=== PATIENT | male | born 1975 | race Two or more races ===

== ENCOUNTER 2021-07-19 03:19 | Inpatient (IN) | payer SELFPAY ==
[~2021-07-19] VITALS: Ht 177.8 cm; Wt 83.7 kg
[2021-07-19] MEDS ORDERED: FAMOTIDINE 20 MG/2 ML VIAL IVP ONE (03:45)
[2021-07-19] MEDS ORDERED: IV NORMAL SALINE 1000ML BAG 1,000 ML IV ONE ×2 (03:45→06:15)
[2021-07-19] MEDS ORDERED: LIDO:MAALOX 1:1 20 ML SINGLE DOSE. PO ONE (03:45)
[2021-07-19] MEDS ORDERED: ONDANSETRON PF 4 MG/2 ML VIAL. IVP ONE (03:45)
[2021-07-19 04:00] LABS: BASO % 0 % (0-3); EOS % 0 % (0-3); HEMATOCRIT 42.4 % (39.0-53.0); HEMOGLOBIN 14.9 g/dL (13.0-17.5); LYMPH % 5 % (24-48); MEAN CORPUSCULAR HEMOGLOBIN 30 pg (25-35); MEAN CORPUSCULAR HGB CONC 35 g/dL (31-37); MEAN CORPUSCULAR VOLUME 86 fL (79-100); MONO # 1.6 x10^3/uL (0.0-1.1); MONO % 8 % (0-9); NEUT # 18.1 x10^3/uL (1.8-7.7); NEUT % 87 % (31-73); PLATELET COUNT 167 x10^3/uL (140-400); RED BLOOD COUNT 4.92 x10^6/uL (4.30-5.70); RED CELL DISTRIBUTION WIDTH 12.5 % (11.5-14.5); WHITE BLOOD COUNT 20.8 x10^3/uL (4.0-11.0)
[2021-07-19 04:09] LABS: CALCIUM 8.6 mg/dL (8.5-10.1); GFR 80.1; POTASSIUM 3.2 mmol/L (3.5-5.1)
--- NOTE | 2021-07-19 04:10 | PHYS DOC ---
Past Medical History Past Medical History: Constipation Past Surgical History: No Surgical History Smoking Status: Never Smoker Alcohol Use: Occasionally ("6pack on weekends") Drug Use: None General Adult EDM: Chief Complaint: ABDOMINAL PAIN HPI: HPI: 46-year-old male presents with report of epigastric abdominal pain is been ongoing for the past 3 days. Patient reports associated nausea and vomiting. Denies known sick contacts. Denies known exposure to COVID-19. Denies trauma. Denies fever or chills. Patient also reports has not had a bowel movement during this period of time. Patient reports he eats "spicy foods ". Patient trialed using Pepto-Bismol without significant improvement of symptoms. Reports he is not vaccinated for COVID-19. Denies known sick contacts or known exposure to COVID-19. Last PO at 2300. Review of Systems: Review of Systems: Constitutional: Denies fever or chills Eyes: Denies redness or eye pain HENT: Denies nasal congestion or sore throat Respiratory: Denies cough or shortness of breath Cardiovascular: Denies chest pain or palpitations GI: Reports abdominal pain, nausea, and vomiting : Denies dysuria or hematuria Musculoskeletal: Denies back pain or joint pain Integument: Denies rash or skin lesions Neurologic: Denies headache, focal weakness or sensory changes Complete systems were reviewed and found to be within normal limits, except as documented in this note. Heart Score: C/O Chest Pain: N/A Current Medications: Current Medications Medications (Trade) Dose Ordered Sig/Kalyani Start Time Stop Time Status Last Admin Dose Admin Famotidine (Pepcid Vial) 20 mg 1X ONCE 07/19/21 03:45 07/19/21 03:46 DC 07/19/21 03:57 20 MG Multi-Ingredient Mouthwash/Gargle (Gi Cocktail) 20 ml 1X ONCE 07/19/21 03:45 07/19/21 03:46 DC 07/19/21 03:57 20 ML Ondansetron HCl (Zofran) 4 mg 1X ONCE 07/19/21 03:45 07/19/21 03:46 DC 07/19/21 03:57 4 MG Sodium Chloride 1,000 ml @ 1,000 mls/hr 1X ONCE 07/19/21 03:45 07/19/21 04:44 07/19/21 03:57 1,000 MLS/HR Allergies: Allergies: Allergies Coded Allergies Type Severity Reaction Last Updated Verified No Known Drug Allergies 07/19/21 No Physical Exam: PE: Constitutional: Well developed, well nourished, no acute distress, non-toxic appearance HENT: Normocephalic, atraumatic Eyes: Conjunctiva normal, no discharge Neck: Normal range of motion, supple Lungs & Thorax: No respiratory distress, equal chest rise and fall Abdomen: Soft, diffuse abdominal tenderness, no distention/rebound tenderness Skin: Warm, dry, no erythema, no rash Back: No tenderness, no CVA tenderness Extremities: No tenderness, ROM intact, no edema Neurologic: Alert and oriented X 3, no focal deficits noted Psychologic: Affect normal, judgment normal Current Patient Data: Labs: Laboratory Tests Test 07/19/21 03:52 White Blood Count 20.8 x10^3/uL (4.0-11.0) H Red Blood Count 4.92 x10^6/uL (4.30-5.70) Hemoglobin 14.9 g/dL (13.0-17.5) Hematocrit 42.4 % (39.0-53.0) Mean Corpuscular Volume 86 fL (79-100) Mean Corpuscular Hemoglobin 30 pg (25-35) Mean Corpuscular Hemoglobin Concent 35 g/dL (31-37) Red Cell Distribution Width 12.5 % (11.5-14.5) Platelet Count 167 x10^3/uL (140-400) Neutrophils (%) (Auto) 87 % (31-73) H Lymphocytes (%) (Auto) 5 % (24-48) L Monocytes (%) (Auto) 8 % (0-9) Eosinophils (%) (Auto) 0 % (0-3) Basophils (%) (Auto) 0 % (0-3) Neutrophils # (Auto) 18.1 x10^3/uL (1.8-7.7) H Lymphocytes # (Auto) 1.0 x10^3/uL (1.0-4.8) Monocytes # (Auto) 1.6 x10^3/uL (0.0-1.1) H Eosinophils # (Auto) 0.0 x10^3/uL (0.0-0.7) Basophils # (Auto) 0.0 x10^3/uL (0.0-0.2) Platelet Estimate Pending Laboratory Tests 07/19/21 03:52 Vital Signs: Vital Signs Date Time Temp Pulse Resp B/P (MAP) Pulse Ox O2 Delivery O2 Flow Rate FiO2 07/19/21 03:38 98.4 104 16 138/89 97 Room Air 98.4 EKG: EKG: @0403 NSR at 96bpm, RBBB, NO ST elevation, QRS 98ms, QT/QTc 346/444ms Radiology/Procedures: Radiology/Procedures: PROCEDURE: CT ABD PELV W/ IV CONTRST ONLY CT abdomen and pelvis with contrast: Reason for examination: Abdominal pain with nausea and vomiting and constipation. Helical images were obtained through the abdomen pelvis with intravenous administration of 75 cc Omnipaque 300. Reconstruction was performed in sagittal and coronal planes. Exposure: One or more of the following individualized dose reduction techniques were utilized for this examination: 1. Automated exposure control 2. Adjustment of the mA and/or kV according to patient size 3. Use of iterative re construction technique. There is some linear atelectasis at the lung bases bilaterally. The heart size is normal with no pericardial effusion. No focal abnormalities are seen at the liver, spleen, gallbladder, adrenal glands or pancreas. The kidneys show no renal masses, renal calculi, hydronephro sis or obstructive uropathy. The colon shows a few diverticuli but no evidence of diverticulitis or colitis. No abnormality seen at the stomach or duodenum. The small intestinal tract however shows dilatation with no wall thickening which extends to the midline of the lower abdomen where there appears to be a dilated appendix with appendicolith and appear rupture of the distal appendix with inflammatory changes in the mesentery and localized fluid collection with air suggests an abscess measuring approximately 4 x 3.2 x 4 cm in AP, transverse and craniocaudal dimensions respectively. The kidneys show no renal masses, renal calculi, hydronephrosis or evidence of obstructive uropathy. No abnormality seen at the bladder, prostate gland or seminal vesicles. No free fluid or free air is identified. No acute bony abnormalities are seen. IMPRESSION: Dilated appendix with appendicolith and appear rupture of the distal appendix with localized inflammatory changes and localized fluid collection with air consistent with an abscess measuring 4 x 3.2 x 4 cm in greatest dimensions. This abuts small intestine at the midline in the lower abdomen with proximal dilatation of the small intestine. Electronically signed by: Lexus Saldaña MD (07/19/2021 5:33 AM) ARLEN Course & Med Decision Making: Course & Med Decision Making Pertinent Labs and Imaging studies reviewed. (See chart for details) Patient presents with epigastric abdominal pain with associated nausea and vomiting that is been ongoing for the past 3 days. Patient had reported eating spicy food and drinking alcohol with concern for possible gastritis. GI cocktail provided with some improvement of symptoms. Patient was rather distended on physical exam and therefore CT imaging was obtained. Labs also obtained and posted to chart. WBC significantly elevated. CT with signs of ruptured appendicitis with intra-abdominal abscess. Empiric antibiotic initiated. Discussed case with Dr. Braswell (general surgery) who is in agreement with consultation but requests consultation to interventional radiology for drainage of abscess. Discussed case with Dr. Nathan (IR) who is in agreement with consultation. Patient requiring admission for further evaluation and treatment. Discussed with Dr. Mcconnell (hospitalist) who is in agreement with admission. Discussed findings and plan with patient and family, who acknowledge understanding and agreement. Dominique Disclaimer: Dominique Disclaimer: This electronic medical record was generated, in whole or in part, using a voice recognition dictation system. Departure Departure Impression: Primary Impression: Ruptured appendicitis Additional Impression: Intra-abdominal abscess Disposition: ADMITTED INPATIENT Admitting Physician: SANDIE (Enedina) Condition: GUARDED Critical Care Time Critical care time was 30 minutes which includes time at bedside, spent in discussion of patient's care with specialists and/or family members, with interpretation of laboratory and/or radiological studies and is exclusive of procedures. MELINA BATISTA DO Jul 19, 2021 04:10
[2021-07-19 04:15] LABS: ALBUMIN 3.1 g/dL (3.4-5.0); ALBUMIN/GLOBULIN RATIO 0.6 (1.0-1.7); MAGNESIUM 2.5 mg/dL (1.8-2.4); TOTAL BILIRUBIN 1.2 mg/dL (0.2-1.0); TOTAL PROTEIN 8.4 g/dL (6.4-8.2)
[2021-07-19 04:23] LABS: CREATINE KINASE 60 U/L (39-308)
[2021-07-19 04:29] LABS: % LYMPHS 4 % (24-48); % MONOS 5 % (0-10); % SEGS 91 % (35-66); PLT ESTIMATE ADEQUATE (ADEQUATE)
[2021-07-19 04:30] LABS: TOXIC VACUOLATION SLIGHT
[2021-07-19] MEDS ORDERED: IOHEXOL 300 MG/ML 100ML VIAL. IV ONE (04:30)
[2021-07-19] MEDS ORDERED: CONTRAST GIVEN. MC PRN (04:30)
--- NOTE | 2021-07-19 05:35 | RAD ---
CT abdomen and pelvis with contrast: Reason for examination: Abdominal pain with nausea and vomiting and constipation. Helical images were obtained through the abdomen pelvis with intravenous administration of 75 cc Omni paque 300. Reconstruction was performed in sagittal and coronal planes. Exposure: One or more of the following individualized dose reduction techniques were utilized for thi s examination: 1. Automated exposure control 2. Adjustment of the mA and/or kV according to patient size 3. Use of iterative reconstruction technique. There is some linear atelectasis at the lung bases bilaterally. The heart size is normal with no melisa cardial effusion. No focal abnormalities are seen at the liver, spleen, gallbladder, adrenal glands or pancreas. The ki dneys show no renal masses, renal calculi, hydronephrosis or obstructive uropathy. The colon shows a few diverticuli but no evidence of diverticulitis or colitis. No abnormality seen at the stomach or d uodenum. The small intestinal tract however shows dilatation with no wall thickening which extends to the midline of the lower abdomen where there appears to be a dilated appendix with appendicolith and appear rupture of the distal appendix with inflammatory changes in the mesentery and localized fluid collection with air suggests an abscess measuring approximately 4 x 3.2 x 4 cm in AP, transverse and craniocaudal dimensions respectively. The kidneys show no renal masses, renal calculi, hydronephrosi s or evidence of obstructive uropathy. No abnormality seen at the bladder, prostate gland or seminal vesicles. No free fluid or free air is identified. No acute bony abnormalities are seen. IMPRESSION: Dilated appendix with appendicolith and appear rupture of the distal appendix with localized inflamma tory changes and localized fluid collection with air consistent with an abscess measuring 4 x 3.2 x 4 cm in greatest dimensions. This abuts small intestine at the midline in the lower abdomen with proxi mal dilatation of the small intestine. Electronically signed by: Lexus Saldaña MD (07/19/2021 5:33 AM) ARLEN
[2021-07-19 05:45] LABS: BILIRUBIN,URINE NEGATIVE (NEG); CLARITY,URINE CLEAR; COLOR,URINE AMBER; NITRITE,URINE NEGATIVE (NEG); PH,URINE 6.5 (<5.0-8.0); PROTEIN,URINE 100 mg/dL (NEG-TRACE)
[2021-07-19] MEDS ORDERED: fentaNYL PF VIAL 100 MCG/2 ML VIAL IVP PRN (06:00)
[2021-07-19] MEDS ORDERED: ONDANSETRON PF 4 MG/2 ML VIAL. IVP PRN (06:00)
[2021-07-19 06:05] LABS: BACTERIA,URINE 0 /HPF (0-FEW); RBC,URINE 0 /HPF (0-2); WBC,URINE 0 /HPF (0-4)
[2021-07-19] MEDS ORDERED: PIPERACILLIN/TAZOBACTAM 3.375 GM in IV NORMAL SALINE 50ML 50 ML IV ONE (06:30)
[2021-07-19] MEDS: MORPHINE SULFATE 4 MG/ML INJ. IV PRN ×4 (08:01→20:13)
--- NOTE | 2021-07-19 09:10 | PDOC2 ---
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 Associated nausea, emesis. Denies fevers, chills, constipation or diarrhea Past Medical History Past Medical History no pertinent hx Past Surgical History Past Surgical History: No pertinent history Family History Family History: Other (noncontributory to current illness ) Social History No ALCOHOL: other (6 pack beer on weekends ) Drugs: None Lives: with Family Current Problem List Problem List Problems Medical Problems: (1) Abdominal pain Status: Acute (2) Intra-abdominal abscess Status: Acute (3) Ruptured appendicitis Status: Acute Current Medications Current Medications Current Medications Multi-Ingredient Mouthwash/Gargle (Gi Cocktail) 20 ml 1X ONCE PO Last administered on 07/19/21at 03:57; Start 07/19/21 at 03:45; Stop 07/19/21 at 03:46; Status DC Ondansetron HCl (Zofran) 4 mg 1X ONCE IVP Last administered on 07/19/21at 03:57; Start 07/19/21 at 03:45; Stop 07/19/21 at 03:46; Status DC Famotidine (Pepcid Vial) 20 mg 1X ONCE IVP Last administered on 07/19/21at 03:57; Start 07/19/21 at 03:45; Stop 07/19/21 at 03:46; Status DC Sodium Chloride 1,000 ml @ 1,000 mls/hr 1X ONCE IV Last administered on 07/19/21at 03:57; Start 07/19/21 at 03:45; Stop 07/19/21 at 04:44; Status DC Iohexol (Omnipaque 300 Mg/ml) 75 ml 1X ONCE IV Last administered on 07/19/21at 04:49; Start 07/19/21 at 04:30; Stop 07/19/21 at 04:31; Status DC Info (CONTRAST GIVEN -- Rx MONITORING) 1 each PRN DAILY PRN MC SEE COMMENTS; Start 07/19/21 at 04:30; Stop 07/21/21 at 04:29 Piperacillin Sod/ Tazobactam Sod 3.375 gm/Sodium Chloride 50 ml @ 100 mls/hr 1X ONCE IV Last administered on 07/19/21at 06:04; Start 07/19/21 at 06:30; Stop 07/19/21 at 06:59; Status DC Ondansetron HCl (Zofran) 4 mg PRN Q8HRS PRN IVP NAUSEA/VOMITING; Start 07/19/21 at 06:00; Stop 07/20/21 at 05:59 Fentanyl Citrate (Fentanyl 2ml Vial) 50 mcg PRN Q2HR PRN IVP PAIN Last administered on 07/19/21at 06:11; Start 07/19/21 at 06:00 Sodium Chloride 1,000 ml @ 100 mls/hr 1X ONCE IV Last administered on 07/19/21at 08:02; Start 07/19/21 at 06:15; Stop 07/19/21 at 16:14 Morphine Sulfate (Morphine Sulfate) 4 mg PRN Q2HR PRN IV PAIN Last administered on 07/19/21at 08:01; Start 07/19/21 at 07:45 Allergies Allergies: Coded Allergies: No Known Drug Allergies (Unverified , 07/19/21) ROS General: No: Chills, Other (fevers ) PSYCHOLOGICAL ROS: No: Anxiety, Depression Eyes: No Blurry vision, No Double vision HEENT: No: Heacaches, Sore Throat Hematological and Lymphatic: No: Bleeding Problems, Blood Clots Respiratory: No: Cough, Shortness of breath Cardiovascular: No Chest Pain, No Palpitations Gastrointestinal: Yes Other (see hpi) Genitourinary: No Dysuria, No Retention Musculoskeletal: No Joint Pain, No Muscle Pain Neurological: No Impaired Coord/balance, No Numbness/Tingling Skin: No Pruritus, No Rash Physical Exam General: Alert, Oriented X3, Cooperative HEENT: Atraumatic, PERRLA Lungs: Clear to auscultation, Normal air movement Heart: Regular rate, Normal S1, Normal S2 Abdomen: Soft, Other (generalized ttp, no guarding or rebound ) Extremities: No clubbing, No cyanosis Skin: No rashes, No breakdown Neuro: Normal gait, Normal speech Psych/Mental Status: Mental status NL, Mood NL MUSCULOSKELETAL: No deformity, No swelling Vitals VITALS Vital Signs Date Time Temp Pulse Resp B/P (MAP) Pulse Ox O2 Delivery O2 Flow Rate FiO2 07/19/21 08:01 Room Air 07/19/21 07:00 101 16 130/86 (101) 98 07/19/21 03:38 98.4 98.4 Labs Labs Laboratory Tests Test 07/19/21 03:52 07/19/21 05:25 07/19/21 06:20 07/19/21 06:38 White Blood Count 20.8 x10^3/uL (4.0-11.0) Red Blood Count 4.92 x10^6/uL (4.30-5.70) Hemoglobin 14.9 g/dL (13.0-17.5) Hematocrit 42.4 % (39.0-53.0) Mean Corpuscular Volume 86 fL (79-100) Mean Corpuscular Hemoglobin 30 pg (25-35) Mean Corpuscular Hemoglobin Concent 35 g/dL (31-37) Red Cell Distribution Width 12.5 % (11.5-14.5) Platelet Count 167 x10^3/uL (140-400) Neutrophils (%) (Auto) 87 % (31-73) Lymphocytes (%) (Auto) 5 % (24-48) Monocytes (%) (Auto) 8 % (0-9) Eosinophils (%) (Auto) 0 % (0-3) Basophils (%) (Auto) 0 % (0-3) Neutrophils # (Auto) 18.1 x10^3/uL (1.8-7.7) Lymphocytes # (Auto) 1.0 x10^3/uL (1.0-4.8) Monocytes # (Auto) 1.6 x10^3/uL (0.0-1.1) Eosinophils # (Auto) 0.0 x10^3/uL (0.0-0.7) Basophils # (Auto) 0.0 x10^3/uL (0.0-0.2) Segmented Neutrophils % 91 % (35-66) Lymphocytes % 4 % (24-48) Monocytes % 5 % (0-10) Toxic Vacuolation Slight Platelet Estimate Adequate (ADEQUATE) Sodium Level 129 mmol/L (136-145) Potassium Level 3.2 mmol/L (3.5-5.1) Chloride Level 93 mmol/L (98-107) Carbon Dioxide Level 29 mmol/L (21-32) Anion Gap 7 (6-14) Blood Urea Nitrogen 19 mg/dL (8-26) Creatinine 1.0 mg/dL (0.7-1.3) Estimated GFR (Cockcroft-Gault) 80.1 BUN/Creatinine Ratio 19 (6-20) Glucose Level 134 mg/dL (70-99) Calcium Level 8.6 mg/dL (8.5-10.1) Magnesium Level 2.5 mg/dL (1.8-2.4) Total Bilirubin 1.2 mg/dL (0.2-1.0) Aspartate Amino Transf (AST/SGOT) 17 U/L (15-37) Alanine Aminotransferase (ALT/SGPT) 54 U/L (16-63) Alkaline Phosphatase 74 U/L (46-116) Creatine Kinase 60 U/L (39-308) Creatine Kinase MB (Mass) 0.7 ng/mL (0.0-3.6) Creatine Kinase MB Relative Index % (0-4) Troponin I Quantitative < 0.017 ng/mL (0.000-0.055) Total Protein 8.4 g/dL (6.4-8.2) Albumin 3.1 g/dL (3.4-5.0) Albumin/Globulin Ratio 0.6 (1.0-1.7) Lipase 65 U/L (73-393) Urine Collection Type Unknown Urine Color Roshni Urine Clarity Clear Urine pH 6.5 (<5.0-8.0) Urine Specific [place] >=1.030 (1.000-1.030) Urine Protein 100 mg/dL (NEG-TRACE) Urine Glucose (UA) Negative mg/dL (NEG) Urine Ketones (Stick) Negative mg/dL (NEG) Urine Blood Negative (NEG) Urine Nitrite Negative (NEG) Urine Bilirubin Negative (NEG) Urine Urobilinogen Dipstick 1.0 mg/dL (0.2 mg/dL) Urine Leukocyte Esterase Negative (NEG) Urine RBC 0 /HPF (0-2) Urine WBC 0 /HPF (0-4) Urine Squamous Epithelial Cells Few /LPF Urine Bacteria 0 /HPF (0-FEW) SARS-CoV-2 Antigen (Rapid) Negative (NEGATIVE) Lactic Acid Level 0.7 mmol/L (0.4-2.0) Laboratory Tests Test 07/19/21 03:52 07/19/21 05:25 07/19/21 06:20 07/19/21 06:38 White Blood Count 20.8 x10^3/uL (4.0-11.0) Red Blood Count 4.92 x10^6/uL (4.30-5.70) Hemoglobin 14.9 g/dL (13.0-17.5) Hematocrit 42.4 % (39.0-53.0) Mean Corpuscular Volume 86 fL (79-100) Mean Corpuscular Hemoglobin 30 pg (25-35) Mean Corpuscular Hemoglobin Concent 35 g/dL (31-37) Red Cell Distribution Width 12.5 % (11.5-14.5) Platelet Count 167 x10^3/uL (140-400) Neutrophils (%) (Auto) 87 % (31-73) Lymphocytes (%) (Auto) 5 % (24-48) Monocytes (%) (Auto) 8 % (0-9) Eosinophils (%) (Auto) 0 % (0-3) Basophils (%) (Auto) 0 % (0-3) Neutrophils # (Auto) 18.1 x10^3/uL (1.8-7.7) Lymphocytes # (Auto) 1.0 x10^3/uL (1.0-4.8) Monocytes # (Auto) 1.6 x10^3/uL (0.0-1.1) Eosinophils # (Auto) 0.0 x10^3/uL (0.0-0.7) Basophils # (Auto) 0.0 x10^3/uL (0.0-0.2) Segmented Neutrophils % 91 % (35-66) Lymphocytes % 4 % (24-48) Monocytes % 5 % (0-10) Toxic Vacuolation Slight Platelet Estimate Adequate (ADEQUATE) Sodium Level 129 mmol/L (136-145) Potassium Level 3.2 mmol/L (3.5-5.1) Chloride Level 93 mmol/L (98-107) Carbon Dioxide Level 29 mmol/L (21-32) Anion Gap 7 (6-14) Blood Urea Nitrogen 19 mg/dL (8-26) Creatinine 1.0 mg/dL (0.7-1.3) Estimated GFR (Cockcroft-Gault) 80.1 BUN/Creatinine Ratio 19 (6-20) Glucose Level 134 mg/dL (70-99) Calcium Level 8.6 mg/dL (8.5-10.1) Magnesium Level 2.5 mg/dL (1.8-2.4) Total Bilirubin 1.2 mg/dL (0.2-1.0) Aspartate Amino Transf (AST/SGOT) 17 U/L (15-37) Alanine Aminotransferase (ALT/SGPT) 54 U/L (16-63) Alkaline Phosphatase 74 U/L (46-116) Creatine Kinase 60 U/L (39-308) Creatine Kinase MB (Mass) 0.7 ng/mL (0.0-3.6) Creatine Kinase MB Relative Index % (0-4) Troponin I Quantitative < 0.017 ng/mL (0.000-0.055) Total Protein 8.4 g/dL (6.4-8.2) Albumin 3.1 g/dL (3.4-5.0) Albumin/Globulin Ratio 0.6 (1.0-1.7) Lipase 65 U/L (73-393) Urine Collection Type Unknown Urine Color Roshni Urine Clarity Clear Urine pH 6.5 (<5.0-8.0) Urine Specific [place] >=1.030 (1.000-1.030) Urine Protein 100 mg/dL (NEG-TRACE) Urine Glucose (UA) Negative mg/dL (NEG) Urine Ketones (Stick) Negative mg/dL (NEG) Urine Blood Negative (NEG) Urine Nitrite Negative (NEG) Urine Bilirubin Negative (NEG) Urine Urobilinogen Dipstick 1.0 mg/dL (0.2 mg/dL) Urine Leukocyte Esterase Negative (NEG) Urine RBC 0 /HPF (0-2) Urine WBC 0 /HPF (0-4) Urine Squamous Epithelial Cells Few /LPF Urine Bacteria 0 /HPF (0-FEW) SARS-CoV-2 Antigen (Rapid) Negative (NEGATIVE) Lactic Acid Level 0.7 mmol/L (0.4-2.0) Assessment/Plan Assessment/Plan perf appy with abscess IR eval for perc drain, abx bowel rest benefit from appy in 6 weeks BENEDICT REDD MD 07/19/21 8677: CONSULT Assessment/Plan Assessment/Plan Perf appy with abscess; generally due to expected phlegmon and increased risk of surgery, prefer to treat with abx and perc drainage of abscess; I was contacted by IR who indicated that abscess was not accessible percutaneously; plan for antibiotics, bowel rest, FU CT scan approx 3 days to reassess. If abscess sm aller then may only need antibiotics, if larger may become accessible for IR to drain. Surgery remains an option if nonoperative measures are not successful CUCO CAMPBELL APRN Jul 19, 2021 09:10 BENEDICT REDD MD Jul 19, 2021 17:25
[2021-07-19] MEDS ORDERED: PIP/TAZO PER PHARMACY MC PRN (10:15)
[2021-07-19] MEDS: PIPERACILLIN/TAZOBACTAM 3.375 GM in IV NORMAL SALINE 50ML 50 ML IV SCH ×3 (10:46→23:22)
[2021-07-19] MEDS ORDERED: VANCOMYCIN 2 GM in IV NORMAL SALINE 500ML BAG 500 ML IV ONE (11:00)
[2021-07-19 11:05] VITALS: BP 125/95
[2021-07-19] MEDS: VANCOMYCIN PER PHARMACY MC PRN (13:23)
--- NOTE | 2021-07-19 13:25 | NUR ---
Pharmacy Vancomycin Dosing Note S:Consulted to monitor and dose vancomycin started 07/19/21. O:ROSELYN RODAS is a 46 year old M with Abscess . Height: 5 feet, 10 inches Weight: 95.0 kg [place]que[place] Body Weight: 73.00 Adjusted Body Weight: 81.80 Dosing Weight: Actual Other Antibiotics: ZOSYN LABS: Last BUN: Last Creatinine: 1.0 Creatinine Clearance: 105 mL/min Last WBC: 20.8 Last Procalcitonin: Tmax (past 24 hours): 98.4 Microbiology: I/O: Drug Levels: Last level: on at Last dose given 07/19/21 at 1220 Vancomycin Dosing: Loading Dose: 2000 mg x1 Dosing Weight: Actual Target Trough: 15-20 A: Based on: WEIGHT AND RENAL FUNCTION, VANCOMYCIN 2GM IV BOLUS GIVEN, P: 1. START Vancomycin 1500 mg IV q8h 2. Follow up Trough level on 07/20/21 at 1200 3. Pharmacy will continue to monitor, follow and adjust therapy as needed. ARNDEE LAINEZ [facility] [place], 07/19/21 [id number]
--- NOTE | 2021-07-19 14:22 | HP ---
ADMIT DATE: 07/19/2021 CHIEF COMPLAINT: Abdominal pain. HISTORY OF PRESENT ILLNESS: The patient is a pleasant 46-year-old male who presents to the ER with abdominal pain. He rates it as 7/10. He has associated weakness that has been occurring for several days. He denies being exposed to COVID-19. Spicy foods seem to make it worse. I discussed the case with ER physician, the imaging studies are showing appendicitis. We are admitting the patient with consultation to General Surgery. PAST MEDICAL HISTORY: Constipation. ALLERGIES: None. FAMILY HISTORY: Diabetes. SOCIAL HISTORY: Does not drink, smoke or take drugs. MEDICATIONS: Reviewed, please refer to the MRAD. REVIEW OF SYSTEMS: GENERAL: No history of weight change, weakness or fevers. SKIN: No bruising, hair changes or rashes. EYES: No blurred, double or loss of vision. NOSE AND THROAT: No history of nosebleeds, hoarseness or sore throat. HEART: No history of palpitations, chest pain or shortness of breath on exertion. LUNGS: Denies cough, hemoptysis, wheezing or shortness of breath. GASTROINTESTINAL: Denies changes in appetite, nausea, vomiting, diarrhea or constipation. GENITOURINARY: He complains of abdominal pain. NEUROLOGIC: Denies history of numbness, tingling, tremor or weakness. PSYCHIATRIC: No history of panic, anxiety or depression. ENDOCRINE: No history of heat or cold intolerance, polyuria or polydipsia. EXTREMITIES: Denies muscle weakness, joint pain, pain on walking or stiffness. PHYSICAL EXAMINATION: VITALS: Within normal limits and are stable. GENERAL: No apparent distress. Alert and oriented. HEENT: Normal cephalic atraumatic, external auditory canals are patent EYES: Extraocular muscles are intact, pupils are equally round and reactive to light and accommodation MUSCULOSKELETAL: Well developed, well nourished, good range of motion. ENDOCRINE: No thyromegaly was palpated. LYMPHATICS: No cervical chain or axillary nodes were noted. HEMATOPOIETIC: No bruising. NECK: Supple, no JVD, no thyromegaly was noted. LUNGS: Clear to auscultation in all lung lopez without rhonchi or wheezing. HEART: RRR, S1, S2 present. Peripheral pulses intact, no obvious murmurs were noted. ABDOMEN: He has decreased bowel sounds with tenderness in the right quadrants. EXTREMITIES: Without any cyanosis, clubbing, or edema. Pedal pulses intact, Homans sign is negative. NEUROLOGIC: Normal speech, normal tone. A and O x3, moves all extremities, no obvious focal deficits. PSYCHIATRIC: Normal affect, normal mood. Stable. SKIN: No ulcerations or rashes, good skin turgor, no jaundice. VASCULAR: Good capillary refill, neurovascular bundle appears to be intact. DIAGNOSTIC DATA: White count 21, hemoglobin 14.9, platelets 167. Electrolytes: Sodium 129, potassium 3.2, chloride 93, bicarbonate 29, BUN is 19, creatinine 1, glucose 134. CT of the abdomen shows appendicitis. ASSESSMENT AND PLAN: Appendicitis. The patient will be admitted. We will consult General Surgery. IV Zosyn, IV vancomycin. Home medications, deep venous thrombosis prophylaxis. Full code. Trend labs. PROGNOSIS: Guarded. KRYSTAL DR: Mamta TID: [id number]
[2021-07-19 15:15] VITALS: BP 124/76
--- NOTE | 2021-07-19 16:37 | EKG ---
[facility] [address] [place] [address] Test Date: 2021-07-19 Test Time: 04:03:38 Pat Name: ROSELYN RODAS Department: Room: [facility] Gender: M Special Investigator: : 1975 Requested By: MELINA BATISTA Order Number: [id number] Reading MD: Stan Arteaga MD Measurements Intervals [place] Rate: 96 P: 49 WV: 130 QRS: 24 QRSD: 98 T: 54 QT: 346 QTc: 444 Interpretive Statements SINUS RHYTHM INCOMPLETE RIGHT BUNDLE BRANCH BLOCK Electronically Signed On 07-22-2021 9:35:15 CDT by Stan Arteaga MD
[2021-07-19 19:00] VITALS: BP 132/87
[2021-07-19] MEDS: VANCOMYCIN 1.5 GM in IV NORMAL SALINE 500ML BAG 500 ML IV SCH (20:13)
[2021-07-19 23:00] VITALS: BP 131/79
[2021-07-20 02:58] VITALS: BP 134/84
[2021-07-20] MEDS: VANCOMYCIN 1.5 GM in IV NORMAL SALINE 500ML BAG 500 ML IV SCH ×2 (04:11→12:48)
[2021-07-20] MEDS: PIPERACILLIN/TAZOBACTAM 3.375 GM in IV NORMAL SALINE 50ML 50 ML IV SCH ×3 (06:25→18:19)
[2021-07-20 07:00] VITALS: BP_SYST 127; BP_SYST 129; BP_DIAS 78; BP_DIAS 82
--- NOTE | 2021-07-20 10:38 | NUR ---
SW following. Discussed with RN. Pt from home, room air, NPO, COVID-19 negative. Surgery following. Med Assist following for self pay status. SW will continue to follow.
[2021-07-20 11:25] VITALS: BP 147/84
--- NOTE | 2021-07-20 11:42 | PDOC ---
[employer] CAMPBELL [employer] 07/20/21 1142: SURGICAL PROGRESS NOTE DATE: 07/20/21 TIME: 11:41 Subjective feeling better taking sips of water Vital Signs Vital Signs Date Time Temp Pulse Resp B/P (MAP) Pulse Ox O2 Delivery O2 Flow Rate FiO2 07/20/21 11:25 99.5 75 18 147/84 (105) 94 Room Air 99.5 07/20/21 07:00 I&O Intake and Output 07/20/21 07:00 Intake Total 650 ml Output Total 1250 ml Balance -600 ml Intake Oral 0 ml IV Total 650 ml Output Urine Total 1250 ml # Voids 1 General: Alert, Oriented X3, Cooperative Abdomen: Soft, No tenderness Labs Laboratory Tests Test 07/19/21 03:52 07/19/21 05:25 07/19/21 06:20 07/19/21 06:38 White Blood Count 20.8 x10^3/uL (4.0-11.0) Red Blood Count 4.92 x10^6/uL (4.30-5.70) Hemoglobin 14.9 g/dL (13.0-17.5) Hematocrit 42.4 % (39.0-53.0) Mean Corpuscular Volume 86 fL (79-100) Mean Corpuscular Hemoglobin 30 pg (25-35) Mean Corpuscular Hemoglobin Concent 35 g/dL (31-37) Red Cell Distribution Width 12.5 % (11.5-14.5) Platelet Count 167 x10^3/uL (140-400) Neutrophils (%) (Auto) 87 % (31-73) Lymphocytes (%) (Auto) 5 % (24-48) Monocytes (%) (Auto) 8 % (0-9) Eosinophils (%) (Auto) 0 % (0-3) Basophils (%) (Auto) 0 % (0-3) Neutrophils # (Auto) 18.1 x10^3/uL (1.8-7.7) Lymphocytes # (Auto) 1.0 x10^3/uL (1.0-4.8) Monocytes # (Auto) 1.6 x10^3/uL (0.0-1.1) Eosinophils # (Auto) 0.0 x10^3/uL (0.0-0.7) Basophils # (Auto) 0.0 x10^3/uL (0.0-0.2) Segmented Neutrophils % 91 % (35-66) Lymphocytes % 4 % (24-48) Monocytes % 5 % (0-10) Toxic Vacuolation Slight Platelet Estimate Adequate (ADEQUATE) Sodium Level 129 mmol/L (136-145) Potassium Level 3.2 mmol/L (3.5-5.1) Chloride Level 93 mmol/L (98-107) Carbon Dioxide Level 29 mmol/L (21-32) Anion Gap 7 (6-14) Blood Urea Nitrogen 19 mg/dL (8-26) Creatinine 1.0 mg/dL (0.7-1.3) Estimated GFR (Cockcroft-Gault) 80.1 BUN/Creatinine Ratio 19 (6-20) Glucose Level 134 mg/dL (70-99) Calcium Level 8.6 mg/dL (8.5-10.1) Magnesium Level 2.5 mg/dL (1.8-2.4) Total Bilirubin 1.2 mg/dL (0.2-1.0) Aspartate Amino Transf (AST/SGOT) 17 U/L (15-37) Alanine Aminotransferase (ALT/SGPT) 54 U/L (16-63) Alkaline Phosphatase 74 U/L (46-116) Creatine Kinase 60 U/L (39-308) Creatine Kinase MB (Mass) 0.7 ng/mL (0.0-3.6) Creatine Kinase MB Relative Index % (0-4) Troponin I Quantitative < 0.017 ng/mL (0.000-0.055) Total Protein 8.4 g/dL (6.4-8.2) Albumin 3.1 g/dL (3.4-5.0) Albumin/Globulin Ratio 0.6 (1.0-1.7) Lipase 65 U/L (73-393) Urine Collection Type Unknown Urine Color Roshni Urine Clarity Clear Urine pH 6.5 (<5.0-8.0) Urine Specific Greene >=1.030 (1.000-1.030) Urine Protein 100 mg/dL (NEG-TRACE) Urine Glucose (UA) Negative mg/dL (NEG) Urine Ketones (Stick) Negative mg/dL (NEG) Urine Blood Negative (NEG) Urine Nitrite Negative (NEG) Urine Bilirubin Negative (NEG) Urine Urobilinogen Dipstick 1.0 mg/dL (0.2 mg/dL) Urine Leukocyte Esterase Negative (NEG) Urine RBC 0 /HPF (0-2) Urine WBC 0 /HPF (0-4) Urine Squamous Epithelial Cells Few /LPF Urine Bacteria 0 /HPF (0-FEW) SARS-CoV-2 RNA (ALMA) Negative (Negative) SARS-CoV-2 Antigen (Rapid) Negative (NEGATIVE) Lactic Acid Level 0.7 mmol/L (0.4-2.0) Problem List Problems Medical Problems: (1) Abdominal pain Status: Acute (2) Intra-abdominal abscess Status: Acute (3) Ruptured appendicitis Status: Acute Assessment/Plan CT , continue abx ok for clears Justicifation of Admission Dx: Justifications for Admission: Justification of Admission Dx: Yes Comments: perforated appendicitis TYRONE METZGER MD 07/20/21 1246: SURGICAL PROGRESS NOTE Assessment/Plan Mild improvement in pain. Agree with Fredy's assessment and plan. CUCO CAMPBELL APRN Jul 20, 2021 11:42 TYRONE METZGER MD Jul 20, 2021 12:46
--- NOTE | 2021-07-20 13:25 | PDOC ---
[employer] PROGRESS NOTE Date of Service DOS: DATE: 07/20/21 TIME: 13:11 Chief Complaint Chief Complaint Appendicitis Constipation History of Present Illness History of Present Illness HPI: The patient is a pleasant 46-year-old male who presents to the ER with abdominal pain. He rates it as 7/10. He has associated weakness that has been occurring for several days. He denies being exposed to COVID-19. Spicy foods seem to make it worse. I discussed the case with ER physician, the imaging studies are showing appendicitis. We are admitting the patient with consultation to General Surgery. 07/20: Patient seen and examined. Discussed with RN. Chart reviewed. Patient in NAD. Patient on bowel rest, plan to start Clinimix. IR indicated the abscess is not accessible percutaneously, therefore surgery is postponed. IV vancomycin and zosyn are being delivered. Follow-up CT in 3 days. Vitals/I&O Vitals/I&O: Vital Signs Date Time Temp Pulse Resp B/P (MAP) Pulse Ox O2 Delivery O2 Flow Rate FiO2 07/20/21 11:25 99.5 75 18 147/84 (105) 94 Room Air 99.5 07/20/21 07:00 I & O 07/19/21 07/19/21 07/20/21 15:00 23:00 07:00 Intake Total 0 ml 100 ml 550 ml Output Total 1250 ml Balance 0 ml 100 ml -700 ml Physical Exam General: Alert, Oriented X3, Cooperative, No acute distress Heart: Regular rate, Normal S1, Normal S2 Lungs: Clear Abdomen: Soft, Other (decreased bowel sounds with tenderness in the right quadrants) Extremities: No clubbing, No cyanosis Skin: No rashes, No breakdown Review of Systems Review of Systems: Patient denies blurry vision or loss of vision. Assessment and Plan Assessmemt and Plan Problems Medical Problems: (1) Abdominal pain Status: Acute (2) Intra-abdominal abscess Status: Acute (3) Ruptured appendicitis Status: Acute A: Appendicitis Constipation Plan: 1. Appreciate General surgery consultation input 2. Continue IV Antibiotics (Zosyn and vancomycin) 3. Initiate Clinimix 75cc/hr 4. Follow up CT in 3 days 5. Bowel rest 6. PRN Pain meds 7. Trend labs 8. Home medications 9. DVT prophylaxis: enoxaparin 10. Full code Comment Review of Relevant I have reviewed the following items finn (where applicable) has been applied. Medications: Current Medications Medications (Trade) Dose Ordered Sig/Kalyani Route PRN Reason Start Time Stop Time Status Last Admin Dose Admin Vancomycin HCl 1.5 gm/Sodium Chloride 500 ml @ 250 mls/hr Q8H IV 07/19/21 20:30 07/20/21 12:48 Justifications for Admission Other Justification LOUISA ANDREWS III DO Jul 20, 2021 13:24
[2021-07-20] MEDS ORDERED: AA 4.25 %/CALCIUM/LYTES/D5W 1,000 ML IV SCH (13:30)
[2021-07-20 13:44] LABS: VANC TR 29.1 mcg/mL (10.0-20.0)
--- NOTE | 2021-07-20 14:10 | NUR ---
Pharmacy called, Trough level is 29. Stopped Vancomycin IV, flushed line with N/S and capped.
[2021-07-20 14:27] VITALS: BP 142/78
[2021-07-20] MEDS: VANCOMYCIN PER PHARMACY MC PRN (16:47)
--- NOTE | 2021-07-20 16:48 | NUR ---
Pharmacy Vancomycin Dosing Note S: Consulted to monitor and dose vancomycin started 07/19/21. O: BINTA RODAS is a 46 year old M with abscess. Other Antibiotics: ZOSYN 3.375G IV Q6HRS LABS: Last BUN: 19 Last Creatinine: 1.0 Creatinine Clearance: 86 mL/min Last WBC: 20.8 Last Procalcitonin: - Tmax (past 24 hours): 99.5 Microbiology: BLOOD CX (07/19): NGTD I/O: 650/1250 Drug Levels: Last Trough level: 29 on 07/20/21 at 1300 Last dose given 07/19/21 at 1220 Vancomycin Dosing: Dosing Weight: Actual Target Trough: 15-20 A: Patient is receiving vancomycin 1500 mg IV q8hrs. A trough of 29 mcg/ml is above goal range. No renal labs today. Hold vancomycin dosing today, recheck vancomycin random level tomorrow AM to ensure this is trending down prior to restart. P: 1. Hold vancomycin today 2. Follow up random level 07/21 @ 0600 3. Pharmacy will continue to monitor, follow and adjust therapy as needed. FERCHO LIPSCOMB [facility], 07/20/21 [id number]
[2021-07-20] MEDS ORDERED: VANCOMYCIN RANDOM LEVEL. MC ONE (17:00)
[2021-07-20 19:25] VITALS: BP 134/75
[2021-07-20 23:39] VITALS: BP 123/73
[2021-07-21] MEDS: PIPERACILLIN/TAZOBACTAM 3.375 GM in IV NORMAL SALINE 50ML 50 ML IV SCH ×5 (00:18→23:51)
[2021-07-21 03:09] VITALS: BP 126/74
[2021-07-21 07:00] VITALS: BP 114/72
[2021-07-21 07:16] LABS: BASO % 0 % (0-3); EOS % 0 % (0-3); HEMATOCRIT 36.9 % (39.0-53.0); HEMOGLOBIN 12.3 g/dL (13.0-17.5); LYMPH % 6 % (24-48); MEAN CORPUSCULAR HEMOGLOBIN 30 pg (25-35); MEAN CORPUSCULAR HGB CONC 34 g/dL (31-37); MEAN CORPUSCULAR VOLUME 89 fL (79-100); MONO # 1.9 x10^3/uL (0.0-1.1); MONO % 12 % (0-9); NEUT # 13.5 x10^3/uL (1.8-7.7); NEUT % 82 % (31-73); PLATELET COUNT 230 x10^3/uL (140-400); RED BLOOD COUNT 4.14 x10^6/uL (4.30-5.70); RED CELL DISTRIBUTION WIDTH 12.7 % (11.5-14.5); WHITE BLOOD COUNT 16.5 x10^3/uL (4.0-11.0)
[2021-07-21 07:32] LABS: CREATININE 1.8 mg/dL (0.7-1.3); GFR 40.6
--- NOTE | 2021-07-21 09:05 | PDOC ---
[employer] PROGRESS NOTE Date of Service DOS: DATE: 07/21/21 TIME: 08:56 Chief Complaint Chief Complaint Appendicitis Constipation History of Present Illness History of Present Illness HPI: The patient is a pleasant 46-year-old male who presents to the ER with abdominal pain. He rates it as 05/22. He has associated weakness that has been occurring for several days. He denies being exposed to COVID-19. Spicy foods seem to make it worse. I discussed the case with ER physician, the imaging studies are showing appendicitis. We are admitting the patient with consultation to General Surgery. 07/20: Patient seen and examined. Discussed with RN. Chart reviewed. Patient in NAD. Patient on bowel rest, plan to start Clinimix. IR indicated the abscess is not accessible percutaneously, therefore surgery is postponed. IV vancomycin and zosyn are being delivered. Follow-up CT in 3 days. 07/21: Patient seen and examined. Discussed with RN. Chart reviewed. Patient not complaining of pain. Started clinimix and placed on clear liquid diet. Va ncomycin being held due to elevated vancomycin trough. Awaiting follow up CT scheduled for 07/22. Vitals/I&O Vitals/I&O: Vital Signs Date Time Temp Pulse Resp B/P (MAP) Pulse Ox O2 Delivery O2 Flow Rate FiO2 07/21/21 03:09 98.9 72 16 126/74 (91) 96 Room Air 98.9 07/20/21 07:00 I & O 07/20/21 07/20/21 07/21/21 15:00 23:00 07:00 Intake Total 600 ml 550 ml Output Total 800 ml 200 ml 200 ml Balance -800 ml 400 ml 350 ml Physical Exam General: Alert, Oriented X3, Cooperative, No acute distress Heart: Regular rate, Normal S1, Normal S2 Lungs: Clear Abdomen: Soft, Other (decreased bowel sounds with tenderness in the right quadrants) Extremities: No clubbing, No cyanosis Skin: No rashes, No breakdown Labs Labs: Laboratory Tests Test 07/20/21 13:00 07/21/21 06:30 Vancomycin Level Trough 29.1 mcg/mL (10.0-20.0) Vancomycin Last Dose Date 07/20/21 Vancomycin Last Dose Time 0430 White Blood Count 16.5 x10^3/uL (4.0-11.0) Red Blood Count 4.14 x10^6/uL (4.30-5.70) Hemoglobin 12.3 g/dL (13.0-17.5) Hematocrit 36.9 % (39.0-53.0) Mean Corpuscular Volume 89 fL (79-100) Mean Corpuscular Hemoglobin 30 pg (25-35) Mean Corpuscular Hemoglobin Concent 34 g/dL (31-37) Red Cell Distribution Width 12.7 % (11.5-14.5) Platelet Count 230 x10^3/uL (140-400) Neutrophils (%) (Auto) 82 % (31-73) Lymphocytes (%) (Auto) 6 % (24-48) Monocytes (%) (Auto) 12 % (0-9) Eosinophils (%) (Auto) 0 % (0-3) Basophils (%) (Auto) 0 % (0-3) Neutrophils # (Auto) 13.5 x10^3/uL (1.8-7.7) Lymphocytes # (Auto) 1.0 x10^3/uL (1.0-4.8) Monocytes # (Auto) 1.9 x10^3/uL (0.0-1.1) Eosinophils # (Auto) 0.0 x10^3/uL (0.0-0.7) Basophils # (Auto) 0.0 x10^3/uL (0.0-0.2) Creatinine 1.8 mg/dL (0.7-1.3) Estimated GFR (Cockcroft-Gault) 40.6 Random Vancomycin Level 16.1 mcg/mL Review of Systems Review of Systems: denies changes in vision. denies cough. Assessment and Plan Assessmemt and Plan Problems Medical Problems: (1) Abdominal pain Status: Acute (2) Intra-abdominal abscess Status: Acute (3) Ruptured appendicitis Status: Acute A: Appendicitis Constipation Plan: 1. Continue IV Antibiotics -Vancomysin being held due to elevated trough, restart when approved by pharmacy -Continue zoysn 2. Appreciate general surgery consultation input 3. Continue Clinimix 4. Await follow up CT on 07/22 5. Clear liquid diet 6. PRN Pain meds 7. Trend labs 8. Home medications 9. Full code Comment Review of Relevant I have reviewed the following items finn (where applicable) has been applied. Medications: Current Medications Medications (Trade) Dose Ordered Sig/Kalyani Route PRN Reason Start Time Stop Time Status Last Admin Dose Admin Vancomycin HCl (Vancomycin Random Level) 1 each 1X ONCE MC 07/20/21 17:00 07/20/21 17:01 DC 07/20/21 17:00 Justifications for Admission Other Justification LOUISA ANDREWS III DO Jul 21, 2021 09:05
[2021-07-21 11:00] VITALS: BP 134/72
--- NOTE | 2021-07-21 12:07 | PDOC ---
SURGICAL PROGRESS NOTE DATE: 07/21/21 TIME: 12:06 Subjective Patient is doing well denies any abdominal pain Vital Signs Vital Signs Date Time Temp Pulse Resp B/P (MAP) Pulse Ox O2 Delivery O2 Flow Rate FiO2 07/21/21 11:00 98.9 61 16 134/72 (92) 97 Room Air 98.9 07/20/21 07:00 I&O Intake and Output 07/21/21 07:00 Intake Total 1150 ml Output Total 1200 ml Balance -50 ml Intake Oral 1050 ml IV Total 100 ml Output Urine Total 1200 ml # Voids 5 PATIENT HAS A SEYMOUR: No General: Alert, Oriented X3, Cooperative, mild distress Abdomen: Normal bowel sounds, Soft, Other (Mildly tender to palpation right lower quadrant) Labs Laboratory Tests Test 07/20/21 13:00 07/21/21 06:30 Vancomycin Level Trough 29.1 mcg/mL (10.0-20.0) Vancomycin Last Dose Date 07/20/21 Vancomycin Last Dose Time 0430 White Blood Count 16.5 x10^3/uL (4.0-11.0) Red Blood Count 4.14 x10^6/uL (4.30-5.70) Hemoglobin 12.3 g/dL (13.0-17.5) Hematocrit 36.9 % (39.0-53.0) Mean Corpuscular Volume 89 fL (79-100) Mean Corpuscular Hemoglobin 30 pg (25-35) Mean Corpuscular Hemoglobin Concent 34 g/dL (31-37) Red Cell Distribution Width 12.7 % (11.5-14.5) Platelet Count 230 x10^3/uL (140-400) Neutrophils (%) (Auto) 82 % (31-73) Lymphocytes (%) (Auto) 6 % (24-48) Monocytes (%) (Auto) 12 % (0-9) Eosinophils (%) (Auto) 0 % (0-3) Basophils (%) (Auto) 0 % (0-3) Neutrophils # (Auto) 13.5 x10^3/uL (1.8-7.7) Lymphocytes # (Auto) 1.0 x10^3/uL (1.0-4.8) Monocytes # (Auto) 1.9 x10^3/uL (0.0-1.1) Eosinophils # (Auto) 0.0 x10^3/uL (0.0-0.7) Basophils # (Auto) 0.0 x10^3/uL (0.0-0.2) Creatinine 1.8 mg/dL (0.7-1.3) Estimated GFR (Cockcroft-Gault) 40.6 Random Vancomycin Level 16.1 mcg/mL Laboratory Tests Test 07/20/21 13:00 07/21/21 06:30 Vancomycin Level Trough 29.1 mcg/mL (10.0-20.0) Vancomycin Last Dose Date 07/20/21 Vancomycin Last Dose Time 0430 White Blood Count 16.5 x10^3/uL (4.0-11.0) Red Blood Count 4.14 x10^6/uL (4.30-5.70) Hemoglobin 12.3 g/dL (13.0-17.5) Hematocrit 36.9 % (39.0-53.0) Mean Corpuscular Volume 89 fL (79-100) Mean Corpuscular Hemoglobin 30 pg (25-35) Mean Corpuscular Hemoglobin Concent 34 g/dL (31-37) Red Cell Distribution Width 12.7 % (11.5-14.5) Platelet Count 230 x10^3/uL (140-400) Neutrophils (%) (Auto) 82 % (31-73) Lymphocytes (%) (Auto) 6 % (24-48) Monocytes (%) (Auto) 12 % (0-9) Eosinophils (%) (Auto) 0 % (0-3) Basophils (%) (Auto) 0 % (0-3) Neutrophils # (Auto) 13.5 x10^3/uL (1.8-7.7) Lymphocytes # (Auto) 1.0 x10^3/uL (1.0-4.8) Monocytes # (Auto) 1.9 x10^3/uL (0.0-1.1) Eosinophils # (Auto) 0.0 x10^3/uL (0.0-0.7) Basophils # (Auto) 0.0 x10^3/uL (0.0-0.2) Creatinine 1.8 mg/dL (0.7-1.3) Estimated GFR (Cockcroft-Gault) 40.6 Random Vancomycin Level 16.1 mcg/mL Problem List Problems Medical Problems: (1) Abdominal pain Status: Acute (2) Intra-abdominal abscess Status: Acute (3) Ruptured appendicitis Status: Acute Assessment/Plan Overall clinically improving plan for repeat CT scan tomorrow Advance diet Justicifation of Admission Dx: Justifications for Admission: Justification of Admission Dx: Yes TYRONE METZGER MD Jul 21, 2021 12:07
--- NOTE | 2021-07-21 12:17 | NUR ---
Pt NPO due to Ct scan later today. pt is to drink contrast
[2021-07-21] MEDS: IV NORMAL SALINE 1000ML BAG 1,000 ML IV SCH ×2 (13:30→23:50)
[2021-07-21 15:00] VITALS: BP 133/73
[2021-07-21 19:00] VITALS: BP 126/70
[2021-07-21 22:43] VITALS: BP 116/74
[2021-07-22 03:00] VITALS: BP 144/77
[2021-07-22] MEDS: PIPERACILLIN/TAZOBACTAM 3.375 GM in IV NORMAL SALINE 50ML 50 ML IV SCH ×3 (06:07→18:25)
[2021-07-22 07:00] VITALS: BP 158/85
[2021-07-22 08:36] LABS: CREATININE 1.8 mg/dL (0.7-1.3); GFR 40.6
[2021-07-22] MEDS: IV NORMAL SALINE 1000ML BAG 1,000 ML IV SCH ×2 (09:26→22:11)
[2021-07-22] MEDS ORDERED: CONTRAST GIVEN. MC PRN (10:00)
[2021-07-22] MEDS ORDERED: IOHEXOL 240 MG/ML 50ML VIAL. PO ONE (10:00)
--- NOTE | 2021-07-22 10:13 | NUR ---
SW following. Discussed with RN, pt from home, room air, clear liquid diet. Repeat CT scan today. Some discussion about possible drain placement. Med Assist following for self pay status. SW will continue to follow.
--- NOTE | 2021-07-22 10:26 | PDOC ---
[employer] PROGRESS NOTE Date of Service DOS: DATE: 07/22/21 TIME: 10:17 Chief Complaint Chief Complaint Appendicitis Constipation TERRIE History of Present Illness History of Present Illness HPI: The patient is a pleasant 46-year-old male who presents to the ER with abdominal pain. He rates it as 05/22. He has associated weakness that has been occurring for several days. He denies being exposed to COVID-19. Spicy foods seem to make it worse. I discussed the case with ER physician, the imaging studies are showing appendicitis. We are admitting the patient with consultation to General Surgery. 07/20: Patient seen and examined. Discussed with RN. Chart reviewed. Patient in NAD. Patient on bowel rest, plan to start Clinimix. IR indicated the abscess is not accessible percutaneously, therefore surgery is postponed. IV vancomycin and zosyn are being delivered. Follow-up CT in 3 days. 07/21: Patient seen and examined. Discussed with RN. Chart reviewed. Patient not complaining of pain. Started clinimix and placed on clear liquid diet. Vancomycin being held due to elevated vancomycin trough. Awaiting follow up CT scheduled for 07/22. 07/22: Patient seen and examined. Patient awake, alert, and in no NAD. Discussed with RN. Chart reviewed. Last dose of vancomycin was 07/20 due to elevated t rough. Still on IV zosyn. Cr elevated to 1.8, potentially as a result of CT IV contrast. Fluids were initiated. Follow up CT today. Vitals/I&O Vitals/I&O: Vital Signs Date Time Temp Pulse Resp B/P (MAP) Pulse Ox O2 Delivery O2 Flow Rate FiO2 07/22/21 08:00 Room Air 07/22/21 07:00 99.1 58 20 158/85 (109) 95 99.1 I & O 07/21/21 07/21/21 07/22/21 15:00 23:00 07:00 Intake Total 50 ml 294.83 ml 50 ml Output Total 700 ml Balance 50 ml 294.83 ml -650 ml Physical Exam General: Alert, Oriented X3, Cooperative, mild distress Heart: Regular rate, Normal S1, Normal S2 Lungs: Clear Abdomen: Normal bowel sounds, Soft, Other (Mildly tender to palpation right lower quadrant) Extremities: No clubbing, No cyanosis Skin: No rashes, No breakdown Labs Labs: Laboratory Tests Test 07/22/21 07:35 Creatinine 1.8 mg/dL (0.7-1.3) Estimated GFR (Cockcroft-Gault) 40.6 Review of Systems Review of Systems: Patient denies nausea and vomiting Assessment and Plan Assessmemt and Plan Problems Medical Problems: (1) Abdominal pain Status: Acute (2) Intra-abdominal abscess Status: Acute (3) Ruptured appendicitis Status: Acute A: Appendicitis Constipation TERRIE Plan: 1. TERRIE: IV fluids for hydration at 100mls/hr 2. Continue IV Antibiotics (zosyn) 3. Appreciate general surgery consultation input 4. Await follow up CT results 5. Clear liquid diet 6. PRN Pain meds 7. Trend labs 8. Home medications 9. Full code Comment Review of Relevant I have reviewed the following items finn (where applicable) has been applied. Medications: Current Medications Medications (Trade) Dose Ordered Sig/Kalyani Route PRN Reason Start Time Stop Time Status Last Admin Dose Admin Sodium Chloride 1,000 ml @ 100 mls/hr Q10H IV 07/21/21 13:30 07/22/21 09:26 Iohexol (Omnipaque 240 Mg/ml) 50 ml 1X ONCE PO 07/22/21 10:00 07/22/21 10:01 DC 07/22/21 10:00 Justifications for Admission Other Justification LOUISA ANDREWS III DO Jul 22, 2021 10:26
[2021-07-22 11:00] VITALS: BP 172/92
--- NOTE | 2021-07-22 11:07 | PDOC ---
SURGICAL PROGRESS NOTE DATE: 07/22/21 TIME: 11:06 Subjective Patient is doing well tolerating diet scheduled for CT scan today Vital Signs Vital Signs Date Time Temp Pulse Resp B/P (MAP) Pulse Ox O2 Delivery O2 Flow Rate FiO2 07/22/21 08:00 Room Air 07/22/21 07:00 99.1 58 20 158/85 (109) 95 99.1 I&O Intake and Output 07/22/21 07:00 Intake Total 394.83 ml Output Total 700 ml Balance -305.17 ml Intake Oral 0 ml IV Total 394.83 ml Output Urine Total 700 ml # Voids 1 PATIENT HAS A SEYMOUR: No General: Alert, Oriented X3, Cooperative, No acute distress Abdomen: Normal bowel sounds, Soft, No tenderness Labs Laboratory Tests Test 07/20/21 13:00 07/21/21 06:30 07/22/21 07:35 Vancomycin Level Trough 29.1 mcg/mL (10.0-20.0) Vancomycin Last Dose Date 07/20/21 Vancomycin Last Dose Time 0430 White Blood Count 16.5 x10^3/uL (4.0-11.0) Red Blood Count 4.14 x10^6/uL (4.30-5.70) Hemoglobin 12.3 g/dL (13.0-17.5) Hematocrit 36.9 % (39.0-53.0) Mean Corpuscular Volume 89 fL (79-100) Mean Corpuscular Hemoglobin 30 pg (25-35) Mean Corpuscular Hemoglobin Concent 34 g/dL (31-37) Red Cell Distribution Width 12.7 % (11.5-14.5) Platelet Count 230 x10^3/uL (140-400) Neutrophils (%) (Auto) 82 % (31-73) Lymphocytes (%) (Auto) 6 % (24-48) Monocytes (%) (Auto) 12 % (0-9) Eosinophils (%) (Auto) 0 % (0-3) Basophils (%) (Auto) 0 % (0-3) Neutrophils # (Auto) 13.5 x10^3/uL (1.8-7.7) Lymphocytes # (Auto) 1.0 x10^3/uL (1.0-4.8) Monocytes # (Auto) 1.9 x10^3/uL (0.0-1.1) Eosinophils # (Auto) 0.0 x10^3/uL (0.0-0.7) Basophils # (Auto) 0.0 x10^3/uL (0.0-0.2) Creatinine 1.8 mg/dL (0.7-1.3) 1.8 mg/dL (0.7-1.3) Estimated GFR (Cockcroft-Gault) 40.6 40.6 Random Vancomycin Level 16.1 mcg/mL Laboratory Tests Test 07/22/21 07:35 Creatinine 1.8 mg/dL (0.7-1.3) Estimated GFR (Cockcroft-Gault) 40.6 Problem List Problems Medical Problems: (1) Abdominal pain Status: Acute (2) Intra-abdominal abscess Status: Acute (3) Ruptured appendicitis Status: Acute Assessment/Plan Appendicitis with abscess. Clinically patient is doing quite well follow-up CT scan today of abdomen to reevaluate abscess for possible drainage or resolution. Continue medical therapy Justicifation of Admission Dx: Justifications for Admission: Justification of Admission Dx: Yes TYRONE METZGER MD Jul 22, 2021 11:07
--- NOTE | 2021-07-22 12:00 | RAD ---
CT of the abdomen and pelvis without contrast. 07/22/2021 11:13 AM Indication: Reason: Appendicitis with abscess / Spl. Instructions: omni 240 50ml / History: Comparison Study: CT of the abdomen and pelvis July 19, 2021. Technique: Multidetector CT imaging of the abdomen pelvis is obtained without administration of IV co ntrast. Oral contrast was administered prior exam. Findings: The partially visualized lung bases demonstrate mild atelectasis. Liver is unremarkable. Vicarious excretion of contrast in the gallbladder lumen noted. The spleen, ad renal glands, and pancreas have an unremarkable noncontrast enhanced appearance. Minimal perinephric stranding is seen bilaterally. The kidneys otherwise unremarkable. No evidence of bowel obstruction i s identified. Bladder is grossly unremarkable. Redemonstration of appendicitis with a large appendicolith noted in the base of the appendix, the dis sangita aspect of the appendix extends into an approximately 6 cm abscess containing gas and fluid. This is essentially centered in the inferior mesentery. The abscesses mildly increased in size in the inte rim. No acute osseous changes are identified. IMPRESSION: Acute appendicitis with probable rupture, distal appendix extending into a 6 cm abscess i n the inferior central mesentery. Abscess mildly increased in size in the interim. CT DOSING PQRS STATEMENT: One or more of the following individualized dose reduction techniques were utilized for this examinat ion: 1. Automated exposure control 2. Adjustment of the mA and/or kV according to patient size 3. Use of iterative reconstruction technique Electronically signed by: Domenico Parker MD (07/22/2021 11:58 AM) [id number]
[2021-07-22 15:00] VITALS: BP 163/90
[2021-07-22 19:15] VITALS: BP 154/81
[2021-07-22 22:47] VITALS: BP 153/83
[2021-07-23] MEDS: PIPERACILLIN/TAZOBACTAM 3.375 GM in IV NORMAL SALINE 50ML 50 ML IV SCH ×4 (00:10→18:17)
[2021-07-23 02:50] VITALS: BP 174/91
[2021-07-23] MEDS: IV NORMAL SALINE 1000ML BAG 1,000 ML IV SCH (05:30)
[2021-07-23] MEDS: IV 1/2 NORMAL SALINE 1,000 ML IV SCH ×2 (06:15→18:17)
[2021-07-23 07:00] VITALS: BP 176/98
--- NOTE | 2021-07-23 09:07 | PDOC ---
CUCO CAMPBELL APRN 07/23/21 0907: SURGICAL PROGRESS NOTE DATE: 07/23/21 TIME: 09:05 Subjective resting having loose stools would like more to eat Vital Signs Vital Signs Date Time Temp Pulse Resp B/P (MAP) Pulse Ox O2 Delivery O2 Flow Rate FiO2 07/23/21 07:00 98.9 62 16 176/98 (124) 93 Room Air 98.9 I&O Intake and Output 07/23/21 07:00 Intake Total 2880 ml Output Total 2175 ml Balance 705 ml Intake Oral 480 ml IV Total 1200 ml Other 1200 ml Output Urine Total 2175 ml # Voids 1 General: Alert, Oriented X3, Cooperative Abdomen: Soft, No tenderness Labs Laboratory Tests Test 07/22/21 07:35 07/23/21 06:50 Creatinine 1.8 mg/dL (0.7-1.3) 1.7 mg/dL (0.7-1.3) Estimated GFR (Cockcroft-Gault) 40.6 43.4 Laboratory Tests Test 07/23/21 06:50 Creatinine 1.7 mg/dL (0.7-1.3) Estimated GFR (Cockcroft-Gault) 43.4 Problem List Problems Medical Problems: (1) Abdominal pain Status: Acute (2) Intra-abdominal abscess Status: Acute (3) Ruptured appendicitis Status: Acute Assessment/Plan abscess unchanged --not amendable to perc drainage continue abx, will ask ID to consult on abx management Advance to [place] diet Justicifation of Admission Dx: Justifications for Admission: Justification of Admission Dx: Yes TYRONE METZGER MD 07/23/21 0908: SURGICAL PROGRESS NOTE Assessment/Plan Clinically improving. CT scan reviewed small abscess agree with Melissa assessment plan CUCO CAMPBELL APRN Jul 23, 2021 09:07 TYRONE METZGER MD Jul 23, 2021 09:08
[2021-07-23 09:12] LABS: CALCIUM 8.7 mg/dL (8.5-10.1); CREATININE 1.7 mg/dL (0.7-1.3); GFR 43.4; POTASSIUM 3.4 mmol/L (3.5-5.1)
[2021-07-23 09:40] LABS: BASO # 0.1 x10^3/uL (0.0-0.2); BASO % 0 % (0-3); EOS # 0.1 x10^3/uL (0.0-0.7); EOS % 1 % (0-3); HEMATOCRIT 38.6 % (39.0-53.0); HEMOGLOBIN 12.9 g/dL (13.0-17.5); LYMPH # 1.3 x10^3/uL (1.0-4.8); LYMPH % 9 % (24-48); MEAN CORPUSCULAR HEMOGLOBIN 30 pg (25-35); MEAN CORPUSCULAR HGB CONC 34 g/dL (31-37); MEAN CORPUSCULAR VOLUME 89 fL (79-100); MONO # 1.8 x10^3/uL (0.0-1.1); MONO % 13 % (0-9); NEUT # 10.4 x10^3/uL (1.8-7.7); NEUT % 76 % (31-73); PLATELET COUNT 298 x10^3/uL (140-400); RED BLOOD COUNT 4.35 x10^6/uL (4.30-5.70); RED CELL DISTRIBUTION WIDTH 13.2 % (11.5-14.5); WHITE BLOOD COUNT 13.7 x10^3/uL (4.0-11.0)
--- NOTE | 2021-07-23 10:22 | NUR ---
SW following. Discussed with RN, ID consulted due to drain not being placed. COVID-19 negative. Awaiting further plan of care and discharge needs. SW will continue to follow.
[2021-07-23 10:48] VITALS: BP 149/87
--- NOTE | 2021-07-23 12:30 | PDOC ---
[facility] PROGRESS NOTE Date of Service DOS: DATE: 07/23/21 TIME: 12:13 Chief Complaint Chief Complaint Appendicitis Constipation TERRIE History of Present Illness History of Present Illness HPI: The patient is a pleasant 46-year-old male who presents to the ER with abdominal pain. He rates it as 05/22. He has associated weakness that has been occurring for several days. He denies being exposed to COVID-19. Spicy foods seem to make it worse. I discussed the case with ER physician, the imaging studies are showing appendicitis. We are admitting the patient with consultation to General Surgery. 07/20: Patient seen and examined. Discussed with RN. Chart reviewed. Patient in NAD. Patient on bowel rest, plan to start Clinimix. IR indicated the abscess is not accessible percutaneously, therefore surgery is postponed. IV vancomycin and zosyn are being delivered. Follow-up CT in 3 days. 07/21: Patient seen and examined. Discussed with RN. Chart reviewed. Patient not complaining of pain. Started clinimix and placed on clear liquid diet. Vancomycin being held due to elevated vancomycin trough. Awaiting follow up CT scheduled for 07/22. 07/22: Patient seen and examined. Patient awake, alert, and in no NAD. Discussed with RN. Chart reviewed. Last dose of vancomycin was 07/20 due to elevated trough. Still on IV zosyn. Cr elevated to 1.8, potentially as a result of CT IV contrast. Fluids were initiated. Follow up CT today. 07/23: Patient seen and examined. Discussed with RN. Chart reviewed. Patient resting in NAD. Discussed with patient's daughter. The daughter denies any complaints of pain from the patient. Patient has had loose stools. On IV zosyn and discontinued IV vancomycin due to evidence of TERRIE. Cr had decreased slightly to 1.7. Continue hydration. Follow up CT results indicated a slight increase in size of the abscess. Surgery does not recommend drainage. ID was consulted. Vitals/I&O Vitals/I&O: Vital Signs Date Time Temp Pulse Resp B/P (MAP) Pulse Ox O2 Delivery O2 Flow Rate FiO2 07/23/21 10:48 97.6 65 16 149/87 (107) 95 Room Air 97.6 I & O 07/22/21 07/22/21 07/23/21 15:00 23:00 07:00 Intake Total 2880 ml Output Total 225 ml 550 ml 1400 ml Balance -225 ml -550 ml 1480 ml Physical Exam General: Alert, Oriented X3, Cooperative Heart: Regular rate, Normal S1, Normal S2 Lungs: Clear Abdomen: Soft, No tenderness Extremities: No clubbing, No cyanosis Skin: No rashes, No breakdown Labs Labs: Laboratory Tests Test 07/23/21 06:50 White Blood Count 13.7 x10^3/uL (4.0-11.0) Red Blood Count 4.35 x10^6/uL (4.30-5.70) Hemoglobin 12.9 g/dL (13.0-17.5) Hematocrit 38.6 % (39.0-53.0) Mean Corpuscular Volume 89 fL (79-100) Mean Corpuscular Hemoglobin 30 pg (25-35) Mean Corpuscular Hemoglobin Concent 34 g/dL (31-37) Red Cell Distribution Width 13.2 % (11.5-14.5) Platelet Count 298 x10^3/uL (140-400) Neutrophils (%) (Auto) 76 % (31-73) Lymphocytes (%) (Auto) 9 % (24-48) Monocytes (%) (Auto) 13 % (0-9) Eosinophils (%) (Auto) 1 % (0-3) Basophils (%) (Auto) 0 % (0-3) Neutrophils # (Auto) 10.4 x10^3/uL (1.8-7.7) Lymphocytes # (Auto) 1.3 x10^3/uL (1.0-4.8) Monocytes # (Auto) 1.8 x10^3/uL (0.0-1.1) Eosinophils # (Auto) 0.1 x10^3/uL (0.0-0.7) Basophils # (Auto) 0.1 x10^3/uL (0.0-0.2) Sodium Level 150 mmol/L (136-145) Potassium Level 3.4 mmol/L (3.5-5.1) Chloride Level 111 mmol/L (98-107) Carbon Dioxide Level 27 mmol/L (21-32) Anion Gap 12 (6-14) Blood Urea Nitrogen 18 mg/dL (8-26) Creatinine 1.7 mg/dL (0.7-1.3) Estimated GFR (Cockcroft-Gault) 43.4 Glucose Level 105 mg/dL (70-99) Calcium Level 8.7 mg/dL (8.5-10.1) Review of Systems Review of Systems: Denies blurry vision. Denies vomiting. Assessment and Plan Assessmemt and Plan Problems Medical Problems: (1) Abdominal pain Status: Acute (2) Intra-abdominal abscess Status: Acute (3) Ruptured appendicitis Status: Acute A: Appendicitis Constipation TERRIE Plan: 1. Continue IV fluids due to evidence of recent TERRIE 2. Continue IV Antibiotics (zosyn) 3. Appreciate general surgery consultation input 4. Await ID consultation input 5. Advance to [place] diet per surgery input 6. PRN Pain meds 7. Trend labs 8. Home medications 9. Full codet Comment Review of Relevant I have reviewed the following items finn (where applicable) has been applied. Justifications for Admission Other Justification LOUISA ANDREWS III DO Jul 23, 2021 12:30
[2021-07-23 15:06] VITALS: BP 159/72
[2021-07-23 19:15] VITALS: BP 128/77
[2021-07-23 23:17] VITALS: BP 150/72
[2021-07-24] MEDS: PIPERACILLIN/TAZOBACTAM 3.375 GM in IV NORMAL SALINE 50ML 50 ML IV SCH ×4 (00:21→17:13)
[2021-07-24 03:14] VITALS: BP 144/86
[2021-07-24 07:00] VITALS: BP 140/82
[2021-07-24] MEDS: ACETAMINOPHEN 325 MG TABLET. PO PRN ×2 (07:47→17:11)
[2021-07-24] MEDS: LACTOBACILLUS RHAMNOSUS GG 1 CAPSULE. PO SCH ×2 (07:50→20:44)
--- NOTE | 2021-07-24 08:28 | PDOC ---
SURGICAL PROGRESS NOTE DATE: 07/24/21 TIME: 08:27 Subjective Patient doing fine denies any abdominal pain hungry would like to eat regular food afebrile vital signs stable Vital Signs Vital Signs Date Time Temp Pulse Resp B/P (MAP) Pulse Ox O2 Delivery O2 Flow Rate FiO2 07/24/21 03:14 98.7 61 16 144/86 (105) 95 Room Air 98.7 I&O Intake and Output 07/24/21 07:00 Intake Total 1920 ml Output Total 2551 ml Balance -631 ml Intake Oral 1220 ml Other 700 ml Output Urine Total 2550 ml Stool Total 1 ml PATIENT HAS A SEYMOUR: No General: Alert, Oriented X3, Cooperative, mild distress Abdomen: Normal bowel sounds, Soft, No tenderness Labs Laboratory Tests Test 07/23/21 06:50 White Blood Count 13.7 x10^3/uL (4.0-11.0) Red Blood Count 4.35 x10^6/uL (4.30-5.70) Hemoglobin 12.9 g/dL (13.0-17.5) Hematocrit 38.6 % (39.0-53.0) Mean Corpuscular Volume 89 fL (79-100) Mean Corpuscular Hemoglobin 30 pg (25-35) Mean Corpuscular Hemoglobin Concent 34 g/dL (31-37) Red Cell Distribution Width 13.2 % (11.5-14.5) Platelet Count 298 x10^3/uL (140-400) Neutrophils (%) (Auto) 76 % (31-73) Lymphocytes (%) (Auto) 9 % (24-48) Monocytes (%) (Auto) 13 % (0-9) Eosinophils (%) (Auto) 1 % (0-3) Basophils (%) (Auto) 0 % (0-3) Neutrophils # (Auto) 10.4 x10^3/uL (1.8-7.7) Lymphocytes # (Auto) 1.3 x10^3/uL (1.0-4.8) Monocytes # (Auto) 1.8 x10^3/uL (0.0-1.1) Eosinophils # (Auto) 0.1 x10^3/uL (0.0-0.7) Basophils # (Auto) 0.1 x10^3/uL (0.0-0.2) Sodium Level 150 mmol/L (136-145) Potassium Level 3.4 mmol/L (3.5-5.1) Chloride Level 111 mmol/L (98-107) Carbon Dioxide Level 27 mmol/L (21-32) Anion Gap 12 (6-14) Blood Urea Nitrogen 18 mg/dL (8-26) Creatinine 1.7 mg/dL (0.7-1.3) Estimated GFR (Cockcroft-Gault) 43.4 Glucose Level 105 mg/dL (70-99) Calcium Level 8.7 mg/dL (8.5-10.1) Problem List Problems Medical Problems: (1) Abdominal pain Status: Acute (2) Intra-abdominal abscess Status: Acute (3) Ruptured appendicitis Status: Acute Assessment/Plan Acute appendicitis with abscess treated medically appears to be improving clinically advance diet Plan for repeat CT scan on Monday Justicifation of Admission Dx: Justifications for Admission: Justification of Admission Dx: Yes TYRONE METZGER MD Jul 24, 2021 08:28
[2021-07-24] MEDS: IV 1/2 NORMAL SALINE 1,000 ML IV SCH ×2 (09:30→20:44)
[2021-07-24 11:00] VITALS: BP 146/18
--- NOTE | 2021-07-24 11:00 | PDOC ---
[facility] PROGRESS NOTE Date of Service DOS: DATE: 07/24/21 TIME: 10:53 Chief Complaint Chief Complaint Appendicitis Constipation TERRIE History of Present Illness History of Present Illness HPI: The patient is a pleasant 46-year-old male who presents to the ER with abdominal pain. He rates it as 7/10. He has associated weakness that has been occurring for several days. He denies being exposed to COVID-19. Spicy foods seem to make it worse. I discussed the case with ER physician, the imaging studies are showing appendicitis. We are admitting the patient with consultation to General Surgery. 07/20: Patient seen and examined. Discussed with RN. Chart reviewed. Patient in NAD. Patient on bowel rest, plan to start Clinimix. IR indicated the abscess is not accessible percutaneously, therefore surgery is postponed. IV vancomycin and zosyn are being delivered. Follow-up CT in 3 days. 07/21: Patient seen and examined. Discussed with RN. Chart reviewed. Patient not complaining of pain. Started clinimix and placed on clear liquid diet. Vancomycin being held due to elevated vancomycin trough. Awaiting follow up CT scheduled for 07/22. 07/22: Patient seen and examined. Patient awake, alert, and in no NAD. Discussed with RN. Chart reviewed. Last dose of vancomycin was 07/20 due to elevated trough. Still on IV zosyn. Cr elevated to 1.8, potentially as a result of CT IV contrast. Fluids were initiated. Follow up CT today. 07/23: Patient seen and examined. Discussed with RN. Chart reviewed. Patient resting in NAD. Discussed with patient's daughter. The daughter denies any complaints of pain from the patient. Patient has had loose stools. On IV zosyn and discontinued IV vancomycin due to evidence of TERRIE. Cr had decreased slightly to 1.7. Continue hydration. Follow up CT results indicated a slight increase in size of the abscess. Surgery does not recommend drainage. ID was consulted. 07/24: Patient seen and examined. Discussed with RN. Chart reviewed. Patient awake, alert, and NAD. Denies pain, nausea, and vomiting. He endorses feeling better. Continuing IV fluids for hydration. Advanced diet to full liquid per surgery input. Awaiting ID consult. Vitals/I&O Vitals/I&O: Vital Signs Date Time Temp Pulse Resp B/P (MAP) Pulse Ox O2 Delivery O2 Flow Rate FiO2 07/24/21 07:00 97.5 65 18 140/82 (101) 96 Room Air 97.5 I & O 07/23/21 07/23/21 07/24/21 15:00 23:00 07:00 Intake Total 720 ml 500 ml 700 ml Output Total 901 ml 450 ml 1200 ml Balance -181 ml 50 ml -500 ml Physical Exam General: Alert, Oriented X3, Cooperative, mild distress Heart: Regular rate, Normal S1, Normal S2 Lungs: Clear Abdomen: Normal bowel sounds, Soft, No tenderness Extremities: No clubbing, No cyanosis Skin: No rashes, No breakdown Review of Systems Review of Systems: denies cough. denies changes in vision. Assessment and Plan Assessmemt and Plan Problems Medical Problems: (1) Abdominal pain Status: Acute (2) Intra-abdominal abscess Status: Acute (3) Ruptured appendicitis Status: Acute A: Appendicitis Constipation TERRIE Plan: 1. Appreciate surgery input 2. Awaiting ID consultation 3. Continue IV fluids 4. Continue IV Antibiotics (zosyn) 5. Follow up CT on 07/26 5. Advance diet per surgery input 6. PRN Pain meds 7. Trend Cr 8. Home medications 9. Full code Comment Review of Relevant I have reviewed the following items finn (where applicable) has been applied. Medications: Current Medications Medications (Trade) Dose Ordered Sig/Kalyani Route PRN Reason Start Time Stop Time Status Last Admin Dose Admin Sodium Chloride 1,000 ml @ 100 mls/hr Q10H IV 07/23/21 13:30 07/23/21 06:15 Acetaminophen (Tylenol) 650 mg PRN Q6HRS PRN PO MILD PAIN / TEMP > 100.3'F 07/24/21 07:30 07/24/21 07:47 Justifications for Admission Other Justification LOUISA ANDREWS III DO Jul 24, 2021 11:00
[2021-07-24] MEDS: MORPHINE SULFATE 4 MG/ML INJ. IV PRN (13:44)
[2021-07-24 15:00] VITALS: BP 126/92
[2021-07-24 19:20] VITALS: BP 141/84
[2021-07-24 23:33] VITALS: BP 145/89
--- NOTE | 2021-07-25 02:57 | CONS ---
DATE OF CONSULTATION: 07/23/2021 REQUESTING PHYSICIAN: María Ruvalcaba DO REASON FOR CONSULTATION: Ruptured appendix. HISTORY OF PRESENT ILLNESS: This 46-year-old gentleman came in with abdominal pain, vomited once. The patient was found to have ruptured appendix with a small abscess, which is not amenable for drainage. His pain has improved. The patient has no fever. White count is down from 20,000-16,000. He is on a liquid diet, on Zosyn and creatinine is up to 1.7. The patient did receive initially looks like vancomycin, but has been stopped. The patient is feeling much better. There is no nausea, vomiting, diarrhea. Denies any chest pain, shortness of breath, abdominal pain, urinary symptoms or bowel symptoms. PAST MEDICAL HISTORY: Essentially unremarkable. SOCIAL HISTORY: Negative for smoking, occasional alcohol use, no drug use. ALLERGIES: No known drug allergies. CURRENT MEDICATIONS: The patient is on IV Zosyn. REVIEW OF SYSTEMS: As in HPI. All other systems reviewed are negative. PHYSICAL EXAMINATION: GENERAL: Alert, oriented gentleman, not in any distress. VITAL SIGNS: Stable, afebrile. HEENT: NAD. NECK: Supple, no JVP, no lymphadenopathy. LUNGS: Clear. HEART: S1, S2 regular. ABDOMEN: Soft, nontender, no organomegaly. EXTREMITIES: No edema, cyanosis. SKIN: Unremarkable. NEUROLOGIC: The patient is alert, awake, and appropriate. No focal neurologic deficit. LABORATORY DATA: White count is 16.5. BUN and creatinine is 18 and 1.7. Urinalysis unremarkable. COVID negative. Blood culture is negative. CT of the abdomen and pelvis showed a ruptured appendix with abscess. IMPRESSION: 1. Ruptured appendicitis with rupture. 2. Leukocytosis. 3. Acute kidney injury. RECOMMENDATIONS: Recommend abscess is not amenable for drainage as discussed with ____ by Surgery. Recommend continue Zosyn. Continue supportive care, liquid diet. Follow the WBC and creatinine and will continue to follow. Thank you very much, Dr. Ruvalcaba, for giving me opportunity to participate in this patient's care. POONAM/ARETHA/JH LEE: POONAM/yonatan TID: [id number]
[2021-07-25 03:30] VITALS: BP 131/79
[2021-07-25] MEDS: IV 1/2 NORMAL SALINE 1,000 ML IV SCH ×2 (03:55→15:30)
[2021-07-25] MEDS: PIPERACILLIN/TAZOBACTAM 3.375 GM in IV NORMAL SALINE 50ML 50 ML IV SCH ×3 (05:54→12:23)
[2021-07-25 07:00] VITALS: BP 127/80
[2021-07-25 07:51] LABS: BASO # 0.1 x10^3/uL (0.0-0.2); BASO % 1 % (0-3); EOS # 0.3 x10^3/uL (0.0-0.7); EOS % 3 % (0-3); HEMATOCRIT 38.1 % (39.0-53.0); LYMPH # 1.6 x10^3/uL (1.0-4.8); LYMPH % 15 % (24-48); MEAN CORPUSCULAR HEMOGLOBIN 30 pg (25-35); MEAN CORPUSCULAR HGB CONC 34 g/dL (31-37); MEAN CORPUSCULAR VOLUME 88 fL (79-100); MONO # 1.1 x10^3/uL (0.0-1.1); MONO % 10 % (0-9); NEUT # 7.7 x10^3/uL (1.8-7.7); NEUT % 71 % (31-73); PLATELET COUNT 279 x10^3/uL (140-400); RED BLOOD COUNT 4.34 x10^6/uL (4.30-5.70); RED CELL DISTRIBUTION WIDTH 12.7 % (11.5-14.5); WHITE BLOOD COUNT 10.8 x10^3/uL (4.0-11.0)
[2021-07-25 08:20] LABS: ALBUMIN 2.5 g/dL (3.4-5.0); ALBUMIN/GLOBULIN RATIO 0.6 (1.0-1.7); CALCIUM 8.1 mg/dL (8.5-10.1); CREATININE 1.6 mg/dL (0.7-1.3); GFR 46.6
[2021-07-25 08:24] LABS: POTASSIUM 2.9 mmol/L (3.5-5.1)
[2021-07-25] MEDS ORDERED: POTASSIUM CHLORIDE 20 MEQ TABLET.ER. PO ONE ×2 (09:00→12:00)
--- NOTE | 2021-07-25 09:10 | PDOC ---
SURGICAL PROGRESS NOTE DATE: 07/25/21 TIME: 09:09 Subjective Patient doing quite well tolerating diet minimal to no pain Vital Signs Vital Signs Date Time Temp Pulse Resp B/P (MAP) Pulse Ox O2 Delivery O2 Flow Rate FiO2 07/25/21 07:00 98.2 71 18 127/80 (96) 94 Room Air 98.2 I&O Intake and Output 07/25/21 07:00 Intake Total 1200 ml Output Total 1825 ml Balance -625 ml Intake Oral 1200 ml Output Urine Total 1825 ml # Voids 3 PATIENT HAS A SEYMOUR: No General: Alert, Oriented X3, Cooperative, No acute distress Abdomen: Normal bowel sounds, Soft, No tenderness Labs Laboratory Tests Test 07/25/21 07:10 White Blood Count 10.8 x10^3/uL (4.0-11.0) Red Blood Count 4.34 x10^6/uL (4.30-5.70) Hemoglobin 13.0 g/dL (13.0-17.5) Hematocrit 38.1 % (39.0-53.0) Mean Corpuscular Volume 88 fL (79-100) Mean Corpuscular Hemoglobin 30 pg (25-35) Mean Corpuscular Hemoglobin Concent 34 g/dL (31-37) Red Cell Distribution Width 12.7 % (11.5-14.5) Platelet Count 279 x10^3/uL (140-400) Neutrophils (%) (Auto) 71 % (31-73) Lymphocytes (%) (Auto) 15 % (24-48) Monocytes (%) (Auto) 10 % (0-9) Eosinophils (%) (Auto) 3 % (0-3) Basophils (%) (Auto) 1 % (0-3) Neutrophils # (Auto) 7.7 x10^3/uL (1.8-7.7) Lymphocytes # (Auto) 1.6 x10^3/uL (1.0-4.8) Monocytes # (Auto) 1.1 x10^3/uL (0.0-1.1) Eosinophils # (Auto) 0.3 x10^3/uL (0.0-0.7) Basophils # (Auto) 0.1 x10^3/uL (0.0-0.2) Sodium Level 143 mmol/L (136-145) Potassium Level 2.9 mmol/L (3.5-5.1) Chloride Level 106 mmol/L (98-107) Carbon Dioxide Level 27 mmol/L (21-32) Anion Gap 10 (6-14) Blood Urea Nitrogen 13 mg/dL (8-26) Creatinine 1.6 mg/dL (0.7-1.3) Estimated GFR (Cockcroft-Gault) 46.6 BUN/Creatinine Ratio 8 (6-20) Glucose Level 107 mg/dL (70-99) Calcium Level 8.1 mg/dL (8.5-10.1) Total Bilirubin 1.0 mg/dL (0.2-1.0) Aspartate Amino Transf (AST/SGOT) 26 U/L (15-37) Alanine Aminotransferase (ALT/SGPT) 53 U/L (16-63) Alkaline Phosphatase 77 U/L (46-116) Total Protein 7.0 g/dL (6.4-8.2) Albumin 2.5 g/dL (3.4-5.0) Albumin/Globulin Ratio 0.6 (1.0-1.7) Laboratory Tests Test 07/25/21 07:10 White Blood Count 10.8 x10^3/uL (4.0-11.0) Red Blood Count 4.34 x10^6/uL (4.30-5.70) Hemoglobin 13.0 g/dL (13.0-17.5) Hematocrit 38.1 % (39.0-53.0) Mean Corpuscular Volume 88 fL (79-100) Mean Corpuscular Hemoglobin 30 pg (25-35) Mean Corpuscular Hemoglobin Concent 34 g/dL (31-37) Red Cell Distribution Width 12.7 % (11.5-14.5) Platelet Count 279 x10^3/uL (140-400) Neutrophils (%) (Auto) 71 % (31-73) Lymphocytes (%) (Auto) 15 % (24-48) Monocytes (%) (Auto) 10 % (0-9) Eosinophils (%) (Auto) 3 % (0-3) Basophils (%) (Auto) 1 % (0-3) Neutrophils # (Auto) 7.7 x10^3/uL (1.8-7.7) Lymphocytes # (Auto) 1.6 x10^3/uL (1.0-4.8) Monocytes # (Auto) 1.1 x10^3/uL (0.0-1.1) Eosinophils # (Auto) 0.3 x10^3/uL (0.0-0.7) Basophils # (Auto) 0.1 x10^3/uL (0.0-0.2) Sodium Level 143 mmol/L (136-145) Potassium Level 2.9 mmol/L (3.5-5.1) Chloride Level 106 mmol/L (98-107) Carbon Dioxide Level 27 mmol/L (21-32) Anion Gap 10 (6-14) Blood Urea Nitrogen 13 mg/dL (8-26) Creatinine 1.6 mg/dL (0.7-1.3) Estimated GFR (Cockcroft-Gault) 46.6 BUN/Creatinine Ratio 8 (6-20) Glucose Level 107 mg/dL (70-99) Calcium Level 8.1 mg/dL (8.5-10.1) Total Bilirubin 1.0 mg/dL (0.2-1.0) Aspartate Amino Transf (AST/SGOT) 26 U/L (15-37) Alanine Aminotransferase (ALT/SGPT) 53 U/L (16-63) Alkaline Phosphatase 77 U/L (46-116) Total Protein 7.0 g/dL (6.4-8.2) Albumin 2.5 g/dL (3.4-5.0) Albumin/Globulin Ratio 0.6 (1.0-1.7) Problem List Problems Medical Problems: (1) Abdominal pain Status: Acute (2) Intra-abdominal abscess Status: Acute (3) Ruptured appendicitis Status: Acute Assessment/Plan Acute appendicitis with perforation abscess clinically improving afebrile vital signs stable normal white count continue IV antibiotics Justicifation of Admission Dx: Justifications for Admission: Justification of Admission Dx: Yes TYRONE METZGER MD Jul 25, 2021 09:10
[2021-07-25] MEDS: LACTOBACILLUS RHAMNOSUS GG 1 CAPSULE. PO SCH (09:24)
[2021-07-25 11:00] VITALS: BP 151/95
--- NOTE | 2021-07-25 11:34 | PDOC ---
Infectious Disease Note Subjective Subjective Patient is feeling much better no abdominal pain no nausea vomiting diarrhea ROS ROS No fever chest pain shortness of breath Vital Sign Vital Signs Vital Signs Date Time Temp Pulse Resp B/P (MAP) Pulse Ox O2 Delivery O2 Flow Rate FiO2 07/25/21 07:00 98.2 71 18 127/80 (96) 94 Room Air 98.2 Physical Exam PHYSICAL EXAM GENERAL: Alert, oriented gentleman, not in any distress. VITAL SIGNS: Stable, afebrile. HEENT: NAD. NECK: Supple, no JVP, no lymphadenopathy. LUNGS: Clear. HEART: S1, S2 regular. ABDOMEN: Soft, nontender, no organomegaly. EXTREMITIES: No edema, cyanosis. SKIN: Unremarkable. NEUROLOGIC: The patient is alert, awake, and appropriate. No focal neurologic deficit. Labs Lab Laboratory Tests Test 07/25/21 07:10 White Blood Count 10.8 x10^3/uL (4.0-11.0) Red Blood Count 4.34 x10^6/uL (4.30-5.70) Hemoglobin 13.0 g/dL (13.0-17.5) Hematocrit 38.1 % (39.0-53.0) Mean Corpuscular Volume 88 fL (79-100) Mean Corpuscular Hemoglobin 30 pg (25-35) Mean Corpuscular Hemoglobin Concent 34 g/dL (31-37) Red Cell Distribution Width 12.7 % (11.5-14.5) Platelet Count 279 x10^3/uL (140-400) Neutrophils (%) (Auto) 71 % (31-73) Lymphocytes (%) (Auto) 15 % (24-48) Monocytes (%) (Auto) 10 % (0-9) Eosinophils (%) (Auto) 3 % (0-3) Basophils (%) (Auto) 1 % (0-3) Neutrophils # (Auto) 7.7 x10^3/uL (1.8-7.7) Lymphocytes # (Auto) 1.6 x10^3/uL (1.0-4.8) Monocytes # (Auto) 1.1 x10^3/uL (0.0-1.1) Eosinophils # (Auto) 0.3 x10^3/uL (0.0-0.7) Basophils # (Auto) 0.1 x10^3/uL (0.0-0.2) Sodium Level 143 mmol/L (136-145) Potassium Level 2.9 mmol/L (3.5-5.1) Chloride Level 106 mmol/L (98-107) Carbon Dioxide Level 27 mmol/L (21-32) Anion Gap 10 (6-14) Blood Urea Nitrogen 13 mg/dL (8-26) Creatinine 1.6 mg/dL (0.7-1.3) Estimated GFR (Cockcroft-Gault) 46.6 BUN/Creatinine Ratio 8 (6-20) Glucose Level 107 mg/dL (70-99) Calcium Level 8.1 mg/dL (8.5-10.1) Total Bilirubin 1.0 mg/dL (0.2-1.0) Aspartate Amino Transf (AST/SGOT) 26 U/L (15-37) Alanine Aminotransferase (ALT/SGPT) 53 U/L (16-63) Alkaline Phosphatase 77 U/L (46-116) Total Protein 7.0 g/dL (6.4-8.2) Albumin 2.5 g/dL (3.4-5.0) Albumin/Globulin Ratio 0.6 (1.0-1.7) Micro Microbiology 07/19/21 Blood Culture - Final, Complete NO GROWTH AFTER 5 DAYS Objective Assessment IMPRESSION: 1. Ruptured appendicitis with rupture. 2. Leukocytosis. 3. Acute kidney injury. Plan Plan of Care Repeat CT tomorrow Continue antibiotics AUBREE TAVERA MD Jul 25, 2021 11:34
--- NOTE | 2021-07-25 11:35 | PDOC ---
[facility] PROGRESS NOTE Date of Service DOS: DATE: 07/25/21 TIME: Chief Complaint Chief Complaint Appendicitis Constipation TERRIE History of Present Illness History of Present Illness HPI: The patient is a pleasant 46-year-old male who presents to the ER with abdominal pain. He rates it as 7/10. He has associated weakness that has been occurring for several days. He denies being exposed to COVID-19. Spicy foods seem to make it worse. I discussed the case with ER physician, the imaging studies are showing appendicitis. We are admitting the patient with consultation to General Surgery. 07/20: Patient seen and examined. Discussed with RN. Chart reviewed. Patient in NAD. Patient on bowel rest, plan to start Clinimix. IR indicated the abscess is not accessible percutaneously, therefore surgery is postponed. IV vancomycin and zosyn are being delivered. Follow-up CT in 3 days. 07/21: Patient seen and examined. Discussed with RN. Chart reviewed. Patient not complaining of pain. Started clinimix and placed on clear liquid diet. Vancomycin being held due to elevated vancomycin trough. Awaiting follow up CT scheduled for 07/22. 07/22: Patient seen and examined. Patient awake, alert, and in no NAD. Discussed with RN. Chart reviewed. Last dose of vancomycin was 07/20 due to elevated trough. Still on IV zosyn. Cr elevated to 1.8, potentially as a result of CT IV contrast. Fluids were initiated. Follow up CT today. 07/23: Patient seen and examined. Discussed with RN. Chart reviewed. Patient resting in NAD. Discussed with patient's daughter. The daughter denies any complaints of pain from the patient. Patient has had loose stools. On IV zosyn and discontinued IV vancomycin due to evidence of TERRIE. Cr had decreased slightly to 1.7. Continue hydration. Follow up CT results indicated a slight increase in size of the abscess. Surgery does not recommend drainage. ID was consulted. 07/24: Patient seen and examined. Discussed with RN. Chart reviewed. Patient awake, alert, and NAD. Denies pain, nausea, and vomiting. He endorses feeling better. Continuing IV fluids for hydration. Advanced diet to full liquid per surgery input. Awaiting ID consult. 07/25: Patient seen and examined. Discussed with RN. Chart reviewed. Patient sitting up, awake, alert, and NAD. Patient endorses feeling well. Denies pain, nausea, and vomiting. Advanced diet to real foods. Tolerating real foods well. Continue zosyn per ID input. Potassium 2.9. Given potassium supplement. Sodium level has normalized. Cr has decreased to 1.6. Discussed with patient's . Hope to discharge today if approved by ID and surgery. Probable elective appendectomy in 6 weeks per surgery input. Vitals/I&O Vitals/I&O: Vital Signs Date Time Temp Pulse Resp B/P (MAP) Pulse Ox O2 Delivery O2 Flow Rate FiO2 07/25/21 07:00 98.2 71 18 127/80 (96) 94 Room Air 98.2 I & O 07/24/21 07/24/21 07/25/21 15:00 23:00 07:00 Intake Total 1200 ml Output Total 1600 ml 225 ml Balance 1200 ml -1600 ml -225 ml Physical Exam General: Alert, Oriented X3, Cooperative, No acute distress Heart: Regular rate, Normal S1, Normal S2 Lungs: Clear Abdomen: Normal bowel sounds, Soft, No tenderness Extremities: No clubbing, No cyanosis Skin: No rashes, No breakdown Labs Labs: Laboratory Tests Test 07/25/21 07:10 White Blood Count 10.8 x10^3/uL (4.0-11.0) Red Blood Count 4.34 x10^6/uL (4.30-5.70) Hemoglobin 13.0 g/dL (13.0-17.5) Hematocrit 38.1 % (39.0-53.0) Mean Corpuscular Volume 88 fL (79-100) Mean Corpuscular Hemoglobin 30 pg (25-35) Mean Corpuscular Hemoglobin Concent 34 g/dL (31-37) Red Cell Distribution Width 12.7 % (11.5-14.5) Platelet Count 279 x10^3/uL (140-400) Neutrophils (%) (Auto) 71 % (31-73) Lymphocytes (%) (Auto) 15 % (24-48) Monocytes (%) (Auto) 10 % (0-9) Eosinophils (%) (Auto) 3 % (0-3) Basophils (%) (Auto) 1 % (0-3) Neutrophils # (Auto) 7.7 x10^3/uL (1.8-7.7) Lymphocytes # (Auto) 1.6 x10^3/uL (1.0-4.8) Monocytes # (Auto) 1.1 x10^3/uL (0.0-1.1) Eosinophils # (Auto) 0.3 x10^3/uL (0.0-0.7) Basophils # (Auto) 0.1 x10^3/uL (0.0-0.2) Sodium Level 143 mmol/L (136-145) Potassium Level 2.9 mmol/L (3.5-5.1) Chloride Level 106 mmol/L (98-107) Carbon Dioxide Level 27 mmol/L (21-32) Anion Gap 10 (6-14) Blood Urea Nitrogen 13 mg/dL (8-26) Creatinine 1.6 mg/dL (0.7-1.3) Estimated GFR (Cockcroft-Gault) 46.6 BUN/Creatinine Ratio 8 (6-20) Glucose Level 107 mg/dL (70-99) Calcium Level 8.1 mg/dL (8.5-10.1) Total Bilirubin 1.0 mg/dL (0.2-1.0) Aspartate Amino Transf (AST/SGOT) 26 U/L (15-37) Alanine Aminotransferase (ALT/SGPT) 53 U/L (16-63) Alkaline Phosphatase 77 U/L (46-116) Total Protein 7.0 g/dL (6.4-8.2) Albumin 2.5 g/dL (3.4-5.0) Albumin/Globulin Ratio 0.6 (1.0-1.7) Review of Systems Review of Systems: Denies dizziness. Denies cough. Assessment and Plan Assessmemt and Plan Problems Medical Problems: (1) Abdominal pain Status: Acute (2) Intra-abdominal abscess Status: Acute (3) Ruptured appendicitis Status: Acute A: Appendicitis Constipation TERRIE Plan: 1. Potassium supplement (Potassium 2.9 on 07/25) 2. Continue antibiotics (zosyn) 3. Appreciate ID consultation 4. Appreciate surgery input -probable elective appendectomy in 6 weeks 5. Advance diet to real foods 6. PRN Pain meds 7. Trend Cr 8. Home medications 9. Full code 10. Plan to discharge today Comment Review of Relevant I have reviewed the following items finn (where applicable) has been applied. Medications: Current Medications Medications (Trade) Dose Ordered Sig/Kalyani Route PRN Reason Start Time Stop Time Status Last Admin Dose Admin Potassium Chloride (Klor-Con) 40 meq 1X ONCE PO 07/25/21 09:00 07/25/21 09:01 DC 07/25/21 09:24 Justifications for Admission Other Justification LOUISA ANDREWS III DO Jul 25, 2021 11:34
--- NOTE | 2021-07-25 14:29 | DS ---
DATE OF DISCHARGE: 07/25/2021 ADMISSION DIAGNOSIS: Appendicitis. DISCHARGE DIAGNOSIS: Resolved appendicitis. CONSULTS: General Surgery and Infectious Disease. HOSPITAL COURSE: The patient is a pleasant middle-aged healthy male who presented with abdominal pain, was noted to have appendicitis with possible abscess. He was admitted. We gave him IV antibiotics. We consulted General Surgery. After the CAT scan, he did have a bump in his creatinine up to 1.8, probably secondary to the contrast. We have been hydrating him as his creatinine is trending down. His creatinine is down to 1.6 now. His white count is also trending down, it was at 21,000 when he first arrived, it is now down to normal at 10.8. Today I saw him and examined, he is at his baseline, he wants to go home. He has been tolerating food. I spoke with Dr. Vaughan this morning of the General Surgery service. The plan is to eventually do an elective appendectomy in a few weeks and Dr. Nicholas will be doing that, we plan to discharge, I gave him a prescription for Augmentin. He states he does not need any pain meds. DISPOSITION: Home. ACTIVITY: As tolerated. DIET: Low sodium. MEDICATIONS: Please see the MRAD. Augmentin 875 p.o. b.i.d. Total time 34 minutes. VIANEY/KAROL DR: VIANEY/yonatan TID: [id number]
[2021-07-25 15:00] VITALS: BP 151/98
--- NOTE | 2021-07-25 16:21 | NUR ---
Patient discharged home with self care. Patient verbalized understanding of discharge instructions. Patient received script for PO antibiotic. Patient had no questions at this time. Discharge instructions received in Italian.
== END 2021-07-25 16:20 | disposition home or self-care (01) | DRG 372 ==
LOC: ER 03:19 → 4 NORTH 06:00
PROVIDERS: ADMIT Family Medicine; ATTEND Family Medicine
DX: K35.33 Acute appendicitis with perforation, localized peritonitis, and gangrene, with abscess (principal); N17.9 Acute kidney failure, unspecified; K38.1 Appendicular concretions; K59.00 Constipation, unspecified; Z83.3 Family history of diabetes mellitus; Z20.822 Contact with and (suspected) exposure to COVID-19; Z79.899 Other long term (current) drug therapy
CPT/HCPCS: 36415; 74176; 74177; 80048; 80053; 80202; 81001; 82553; 82565; 83605; 83690; 83735; 84484; 85007; 85025; 87040; 87426; 93005; 96361; 96365; 96375; J2270; J2405; J2543; J3010; J3370; J3490; J7030; J7040; Q9966; Q9967; U0003; U0005; 99291-25; G0378